=== PATIENT | female | born 1970 | race Hispanic/Latino ===

== ENCOUNTER 2018-05-19 06:30 | Inpatient (IN) | payer BC ==
--- NOTE | 2018-05-19 07:34 | ED PDOC ---
Arrival/HPI - General Chief Complaint: Fever Time Seen by Provider: 05/19/18 07:10 Historian: Patient - History of Present Illness Narrative History of Present Illness (Text): 05/19/18 07:42 A 47 year old female, whose past medical history includes hypertension, born with one kidney, and tonsillectomy, presents to the emergency department complaining of fever and cervical swollen lymph nodes since 4 days ago. Patient reports she went to see her PMD 4 days ago and was prescribed Leviquin. During the weekend, patient's fever would fluctuate up and down, and developed palpitations, sore throat, cough, dehydration, nausea (due to not being able to eat), fatigue and body aches. Patient returned to PMD yesterday and had blood work performed, was given a shot of "a medicine that begins with L", and was prescribed Augmentin. Patient states PMD instructed her to go to the ER if symptoms progress and if fever continues to remain. Patient denies any headaches, neck pain/stiffness, sick contacts, vomiting, abdominal pain, joint pain, rashes or any other complaints at this time. Also, patient mentions having diarrhea, however notes it is a side effect of the Augmentin taken. PMD: Dr. Sousa Past Medical History - Provider Review Nursing Documentation Reviewed: Yes - Infectious Disease Hx of Infectious Diseases: None - Tetanus Immunization Tetanus Immunization: Unknown - Reproductive Currently : No - Pulmonary Hx Asthma: Yes - Psychiatric Hx Depression: No Hx Emotional Abuse: No Hx Physical Abuse: No Hx Substance Use: No - Past Surgical History Past Surgical History: Non-Contributing - Suicidal Assessment Feels Threatened In Home Enviroment: No Family/Social History - Physician Review Nursing Documentation Reviewed: Yes Family/Social History: No Known Family HX Smoking Status: Never Smoked Hx Alcohol Use: No Hx Substance Use: No Hx Substance Use Treatment: No Allergies/Home Meds Allergies/Adverse Reactions: Allergies No Known Allergies Allergy (Verified 10/18/13 16:21) Home Medications: Home Meds Medication Instructions Recorded Confirmed Fexofenadine HCl/Pse HCl 1 ter PO DAILY 10/18/13 10/18/13 [Yana-D 12 Hour 60 mg-120 mg] Meclizine Hydrochloride [Antivert] 25 mg PO Q8 10/18/13 10/18/13 Neomycin/Polymyxin B Sulf/Hc 2 drop OT TID 10/18/13 10/18/13 [Cortisporin 1%-0.35%-90012 U/ml 10 ml] Telmisartan/Hydrochlorothiazid 1 tab PO DAILY 10/18/13 10/18/13 [Micardis Hct 25 mg-80 mg] Tramadol Hydrochloride [Tramadol] 50 mg PO Q8 PRN 10/18/13 10/18/13 clonazePAM [clonAZEPAM] 0.5 mg PO PRN PRN 10/18/13 05/19/18 Review of Systems - Physician Review All systems were reviewed & negative as marked: Yes - Review of Systems Constitutional: Fatigue, Fevers ENT: Sore Throat, Other (swollen lymph nodes in throat) Respiratory: Cough Cardiovascular: Palpitations Gastrointestinal: Nausea. absent: Abdominal Pain, Vomiting Musculoskeletal: Myalgias Physical Exam - Physical Exam Narrative Physical Exam (Text): Gen: NAD, cooperative, speaking in full sentences, non-toxic. Head: NCAT. HEENT: cervical lymphadenopathy, no strider. EYES: PERRL, EOMI, conjunctiva clear, NECK: supple, FROM, non tender, +b/l anterior lymphadenopathy L>R, no stridor MOUTH: moist MM, posterior pharynx with erythema, no exudate, uvula midline, overall poor dental hygiene, no mass in floor of the mouth, no abscesses appreciated, (+) scattered small ulceration to mucosa CV: (+) S1S2, tachycardia, no M/G/R LUNGS: CTA B/L, No W/R/, scattered rhonchi bilaterally, good air movement Abd: Soft, NTTP, no guarding, rebound or rigidity. Neuro: AAO x 3, GCS 15, CN 2-12 intact, motor and sensory grossly intact, 5/5 muscle strength B/L UE's and LE's. ext: no cyanosis or edema Vital Signs Reviewed: Yes Vital Signs Temp Pulse Resp BP Pulse Ox 05/19/18 06:47 101.8 F H 137 H 18 147/93 H 93 L Temperature: Febrile Blood Pressure: Normal Pulse: Regular Respiratory Rate: Normal Appearance: Positive for: Well-Appearing, Non-Toxic, Comfortable Pain Distress: None Mental Status: Positive for: Alert and Oriented X 3 Medical Decision Making ED Course and Treatment: 05/19/18 07:45 Impression: 47 year old female with fever, swollen lymph nodes to throat, sore throat, cough, dehydration, nausea (due to not being able to eat), fatigue, and body aches. Plan: -- Chest X-ray -- Labs -- IV Fluids -- Blood Culture -- Rapid Strep Test -- Influenza A/B -- Urinalysis -- Tylenol -- Reassess and disposition Progress Notes: 05/19/18 09:[address] Sousa, who agrees to admit patient for lymphadenopathy, and consult with Dr. Lizama. Patient was able to tolerate breakfast. 05/19/2018 09:58 Chest X-ray IMPRESSION: No active disease. Dictator: Kevan Hua MD - Scribe Statement The provider has reviewed the documentation as recorded by the Anthonyibzaira Salazar Provider Scribe Attestation: All medical record entries made by the Scribe were at my direction and personally dictated by me. I have reviewed the chart and agree that the record accurately reflects my personal performance of the history, physical exam, medical decision making, and the department course for this patient. I have also personally directed, reviewed, and agree with the discharge instructions and disposition. Disposition/Present on Arrival - Present on Arrival Any Indicators Present on Arrival: No History of DVT/PE: No History of Uncontrolled Diabetes: No Urinary Catheter: No History of Decub. Ulcer: No History Surgical Site Infection Following: None - Disposition Have Diagnosis and Disposition been Completed?: Yes Diagnosis: Cervical lymphadenopathy, Fever Disposition: HOSPITALIZED Disposition Time: 09:25 Patient Plan: Admission, Observation Patient Problems: Current Active Problems Problem Status Onset Cervical lymphadenopathy Acute Fever Acute Condition: STABLE
[2018-05-19] MEDS ORDERED: Sodium Chloride 0.9% 1,000 ML IV STA (07:41)
[2018-05-19 08:17] LABS: BASO # 0.03 K/mm3 (0.0-2.0); BASO % 0.4 % (0.0-3.0); EOS % 0.4 % (1.5-5.0); HEMOGLOBIN 11.5 g/dL (12.0-16.0); LYMPH # 1.3 (1.2-3.4); MEAN CELL VOLUME 91.2 fl (80.0-105.0); MEAN CORPUSCULAR HEMOGLOBIN 28.9 pg (25.0-35.0); MEAN CORPUSCULAR HGB CONC 31.7 g/dl (31.0-37.0); MEAN PLATELET VOLUME 8.9 fl (7.0-11.0); MONO # 0.8 (0.1-0.6); MONO % 10.8 % (1.0-6.0); RBC 3.98 10^6/uL (3.5-6.1); RED CELL DISTRIBUTION WIDTH 13.8 % (11.5-14.5); WHITE BLOOD COUNT 7.8 10^3/uL (4.5-11.0)
[2018-05-19 08:27] LABS: ALBUMIN 3.3 g/dL (3.0-4.8); ALT/SGPT 21 U/L (7-56); AST/SGOT 27 U/L (14-36); BLOOD UREA NITROGEN 10 mg/dL (7-21); CALCIUM 8.1 mg/dL (8.4-10.5); GFR NON-AFRICAN AMERICAN > 60
--- NOTE | 2018-05-19 09:57 | RAD ---
Date of service: 05/19/2018 HISTORY: fever COMPARISON: No prior. TECHNIQUE: Chest PA and lateral FINDINGS: LUNGS: No active pulmonary disease. PLEURA: No significant pleural effusion identified. No pneumothorax apparent. CARDIOVASCULAR: No aortic atherosclerotic calcification present. Normal cardiac size. No pulmonary vascular congestion. OSSEOUS STRUCTURES: No significant abnormalities. VISUALIZED UPPER ABDOMEN: Normal. OTHER FINDINGS: None. IMPRESSION: No active disease.
[2018-05-19] MEDS ORDERED: cefTRIAXone 1 gm 1 GM/100 ML BAG IVPB SCH (10:00)
--- NOTE | 2018-05-19 10:13 | CARD ---
APPROVED REPORT Date of service: 05/19/2018 EKG Measurement Heart [id number] <Conclusion> Sinus tachycardia Cannot rule out Anterior infarct, age undetermined Abnormal ECG
[2018-05-19] MEDS ORDERED: Potassium Chloride 20 mEq ER Tab PO STA (10:31)
[2018-05-19] MEDS: Piperacillin/Tazobact 3.375 gm 100 ML IVPB SCH ×2 (11:18→21:23)
[2018-05-19] MEDS: Azithromycin 500MG/NS 250ml 500 MG/250 ML BAG IVPB SCH (11:19)
[2018-05-19] MEDS ORDERED: Dextrose 5%/0.45% NS 1,000 ML IV SCH (12:15)
--- NOTE | 2018-05-19 16:39 | CP.PCM.CON ---
History of Present Illness - History of Present Illness History of Present Illness: 47 year old female with PMH of HTN, solitary kidney, S/P tonsillectomy, obesity with BMI 30 came in to [facility] because of 4 day history of pain on swallowing in her throat, fevers and malaise. She saw her PMD and was given Levaquin but she continued to have the pain and the fevers. She has on rare occasion dry cough, denies rhinorrhea, no headache or dizziness, no nausea or vomiting, no abdominal pain, no diarrhea, no dysuria, no chest pain, no myalgias. Prior to this admission, she was switched to Augmentin, and she took one dose and she had one loose bowel movement. In the ED, she was still noted to be febrile and Infectious Diseases consult is requested to further evaluate and manage. Review of Systems - Review of Systems All systems: reviewed and no additional remarkable complaints except (as per HPI) Past Patient History - Infectious Disease Hx of Infectious Diseases: None - Tetanus Immunizations Tetanus Immunization: Unknown - Past Social History Smoking Status: Never Smoked - PULMONARY Hx Asthma: Yes - PSYCHIATRIC Hx Depression: No Hx Emotional Abuse: No Hx Physical Abuse: No Hx Substance Use: No Meds Allergies/Adverse Reactions: Allergies Allergy/AdvReac Type Severity Reaction Status Date / Time No Known Allergies Allergy Verified 05/19/18 13:26 - Medications Medications: Current Medications Acetaminophen (Tylenol 325mg Tab) 650 mg PO Q6H PRN PRN Reason: Fever >100.4 F Clonazepam (Klonopin) 0.5 mg PO TID ALISTAIR; Protocol Azithromycin (Zithromax 500mg In Ns) 500 mg in 250 mls @ 167 mls/hr IVPB DAILY ALISTAIR; Protocol Piperacillin Sod/Tazobactam Sod (Zosyn 3.375 In Ns 100ml) 100 mls @ 25 mls/hr IVPB Q8 ALISTAIR; Protocol Stop: 05/26/18 11:16 Meclizine HCl (Antivert) 25 mg PO Q8 ALISTAIR Tramadol HCl (Ultram) 50 mg PO Q8 PRN PRN Reason: Pain Physical Exam - Constitutional Appears: Non-toxic, No Acute Distress - Head Exam Head Exam: NORMAL INSPECTION - ENT Exam ENT Exam: Mucous Membranes Moist - Neck Exam Neck exam: Positive for: Lymphadenopathy (cervical, submandibular noted). Negative for: Meningismus - Respiratory Exam Respiratory Exam: Decreased Breath Sounds. absent: Rales - Cardiovascular Exam Cardiovascular Exam: +S1, +S2 - GI/Abdominal Exam GI & Abdominal Exam: Soft. absent: Tenderness Results - Vital Signs Recent Vital Signs: Last Vital Signs Temp 100.5 F H 05/19/18 10:29 Pulse 95 H 05/19/18 10:29 Resp 20 05/19/18 10:29 BP 124/74 05/19/18 10:29 Pulse Ox 95 05/19/18 10:29 - Labs Result Diagrams: 05/19/18 07:55 05/19/18 07:55 Labs: Laboratory Results - last 24 hr 05/19/18 05/19/18 05/19/18 07:00 07:00 07:55 WBC 7.8 RBC 3.98 Hgb 11.5 L Hct 36.3 MCV 91.2 MCH 28.9 MCHC 31.7 RDW 13.8 Plt Count 187 MPV 8.9 Neut % (Auto) 71.4 H Lymph % (Auto) 17.0 L [place] % (Auto) 10.8 H Eos % (Auto) 0.4 L Baso % (Auto) 0.4 Lymph # (Auto) 1.3 [place] # (Auto) 0.8 H Eos # (Auto) 0.0 Baso # (Auto) 0.03 Absolute Neuts (auto) 5.53 Sodium Potassium Chloride Carbon Dioxide Anion Gap BUN Creatinine Est GFR ( Amer) Est GFR (Non-Af Amer) Random Glucose Calcium Total Bilirubin AST ALT Alkaline Phosphatase Total Protein Albumin Globulin Albumin/Globulin Ratio Urine HCG, Qual Influenza Typ A,B (EIA) Negative for flu a/b Grp A Beta Strep Ag Negative 05/19/18 05/19/18 07:55 08:00 WBC RBC Hgb Hct MCV MCH MCHC RDW Plt Count MPV Neut % (Auto) Lymph % (Auto) [place] % (Auto) Eos % (Auto) Baso % (Auto) Lymph # (Auto) [place] # (Auto) Eos # (Auto) Baso # (Auto) Absolute Neuts (auto) Sodium 139 Potassium 3.4 L Chloride 104 Carbon Dioxide 27 Anion Gap 11 BUN 10 Creatinine 0.8 Est GFR ( Amer) > 60 Est GFR (Non-Af Amer) > 60 Random Glucose 154 H Calcium 8.1 L Total Bilirubin 0.3 AST 27 ALT 21 Alkaline Phosphatase 52 Total Protein 6.7 Albumin 3.3 Globulin 3.4 Albumin/Globulin Ratio 1.0 L Urine HCG, Qual Negative Influenza Typ A,B (EIA) Grp A Beta Strep Ag Assessment & Plan - Assessment and Plan (Free Text) Plan: Assessment consider phanryngitis, bacterial on top of viral, consider infectious mononucleosis HTN solitary kidney S/P tonsillectomy obesity with BMI 30 Plan started on Zosyn and PMD has started her on Zithromax and will follow up throat swab cultures, heterophile antibody tests, EBV IgM will get HIV test due to her age will monitor clinically discussed with Dr. Sousa at bedside
[2018-05-19 16:56] VITALS: BMI 29.9
[2018-05-19] MEDS ORDERED: Benzocaine 20% Cream(7 gm) MT PRN (18:51)
--- NOTE | 2018-05-19 20:58 | HP ---
DATE OF EXAM: 05/19/2018 HISTORY OF PRESENT ILLNESS: The patient is a 47-year-old known to me from office. The patient was seen last week. She was having cough, congestion, sore throat, extreme fatigue and fever at home, so she was started on Levaquin 500 daily and she was given some antihistamine along with antitussive. The patient states she kept on spiking fever despite of being on antibiotic and antipyretic, so she was seen in office yesterday again. She complained of generalized lymphadenopathy. She came in yesterday with generalized lymphadenopathy. She has 102 fever in office. I gave her 300 mg of Lincocin intramuscular and I gave her to continue Levaquin and started her on Augmentin. The patient states she felt little better for few hours, then she started to have spike fever, she has 102 at home, felt very weak, dizzy, difficulty swallowing, and was not eating and drinking. She vomited once yesterday because of extreme fatigue and lethargy and she came to emergency room for further evaluation. PAST MEDICAL HISTORY: Significant for: 1. Hypertension. 2. Eustachian tube dysfunction. 3. Chronic vertigo. 4. Hypothyroidism. 5. B12 deficiency. 6. Solitary kidney. PAST SURGICAL HISTORY: Significant for tonsillectomy. ALLERGIES: SHE IS NOT ALLERGIC TO ANY MEDICATIONS. MEDICATIONS AT HOME: She is on Klonopin 0.5 mg t.i.d. p.r.n. and tramadol p.r.n. She is on Micardis 80/25 daily. She is on meclizine p.r.n. She uses Yana or Zyrtec once in a while. SOCIAL HISTORY: Denies smoking or drinking. She is single. No children, has her own . REVIEW OF SYSTEMS: Complain of dysphagia and enlarged lymph node in her neck causing her dysphagia, complaining of feeling fatigue. PHYSICAL EXAMINATION: GENERAL: She is awake, alert, and able to communicate. VITAL SIGNS: She has temperature of 101.8 upon arrival. She was given Tylenol and now she has temperature of 100.5, pulse 95, respirations 20, and blood pressure 124/74. LUNGS: Bilateral fair airflow. EXTREMITIES: No rhonchi or crackle. HEART: S1 and S2 audible. ABDOMEN: Soft and nontender. No rebound. No guarding. NEUROLOGICAL: The patient is awake, alert, oriented, and communicative. LABORATORY DATA: WBC 7.8, hemoglobin 11.5, hematocrit 36.3, and platelets 185. Chemistry; sodium 139, potassium 3.4, chloride 104, CO2 of , BUN 10, creatinine of 0.8, and blood sugar of 154. test is negative. Flu test is negative. Strep test is negative. ASSESSMENT: 1. Failed out patient treatment. 2. Spiking fever. 3. Acute pharyngitis with dysphagia. 4. Lymphadenopathy. 5. Hypokalemia. 6. Palpitation. 7. History of hypertension. PLAN: We will start the patient on IV fluids, supplement her potassium. She has been started on Zithromax and will be given Unasyn as per ID recommendation. We will follow up her cultures. We will follow up the patient in a.m. Rosa M Sousa MD
[2018-05-19] MEDS ORDERED: Albuterol-Ipratrop 3 mg / 0.5 (3 ml) UD IH ONE (22:32)
[2018-05-20] MEDS: Piperacillin/Tazobact 3.375 gm 100 ML IVPB SCH ×3 (05:06→23:25)
[2018-05-20] MEDS: Azithromycin 500MG/NS 250ml 500 MG/250 ML BAG IVPB SCH (11:49)
[2018-05-20] MEDS ORDERED: TraMADol/Apap 37.5/325 mg Tab PO PRN (11:53)
--- NOTE | 2018-05-20 14:36 | CP.PCM.PN ---
Subjective - Date & Time of Evaluation Date of Evaluation: 05/20/18 Time of Evaluation: 11:45 - Subjective Subjective: Patient is still having pain in the throat, and on swallowing, still with low grade fevers but a little better, no nausea, no diarrhea. No SOB. Objective - Vital Signs/Intake and Output Vital Signs (last 24 hours): Temp Pulse Resp BP Pulse Ox 100.5 F H 88 18 119/80 96 05/19/18 14:32 05/19/18 14:32 05/19/18 14:32 05/19/18 14:32 05/19/18 14:32 Intake and Output: 05/19/18 05/19/18 06:59 18:59 Intake Total 240 Balance 240 - Medications Medications: Current Medications Acetaminophen (Tylenol 325mg Tab) 650 mg PO Q6H PRN PRN Reason: Fever >100.4 F Last Admin: 05/19/18 13:01 Dose: 650 mg Clonazepam (Klonopin) 0.5 mg PO TID PRN; Protocol PRN Reason: Anxiety Azithromycin (Zithromax 500mg In Ns) 500 mg in 250 mls @ 167 mls/hr IVPB DAILY ALISTAIR; Protocol Last Admin: 05/19/18 11:19 Dose: 167 mls/hr Piperacillin Sod/Tazobactam Sod (Zosyn 3.375 In Ns 100ml) 100 mls @ 25 mls/hr IVPB Q8 ALISTAIR; Protocol Stop: 05/26/18 11:16 Last Admin: 05/19/18 11:18 Dose: 25 mls/hr Dextrose/Sodium Chloride (Dextrose 5%/0.45% Ns 1000 Ml) 1,000 mls @ 100 mls/hr IV .Q10H ALISTAIR Meclizine HCl (Antivert) 25 mg PO Q8 PRN PRN Reason: VERTIGO Tramadol HCl (Ultram) 50 mg PO Q8 PRN PRN Reason: Pain - Labs Labs: 05/19/18 07:55 05/19/18 07:55 - Constitutional Appears: Chronically Ill - Head Exam Head Exam: NORMAL INSPECTION - Respiratory Exam Respiratory Exam: Decreased Breath Sounds - Cardiovascular Exam Cardiovascular Exam: +S1, +S2 - GI/Abdominal Exam GI & Abdominal Exam: Soft. absent: Tenderness Assessment and Plan - Assessment and Plan (Free Text) Plan: Assessment consider phanryngitis, bacterial on top of viral, consider infectious mononucleosis, R/O HSV infection HTN solitary kidney S/P tonsillectomy obesity with BMI 30 Plan continue Zosyn and PMD has continued her on Zithromax; throat swab cultures are negative, heterophile antibody test is negative; follow up EBV IgM; will start IV Acyclovir and monitor clinical response HIV test is non-reactive will continue to monitor clinically discussed with Dr. Sousa
[2018-05-20] MEDS: MethylPREDNISolone 40 mg Vial IV SCH ×2 (14:58→23:55)
[2018-05-20] MEDS: Albuterol-Ipratrop 3 mg / 0.5 (3 ml) UD IH PRN ×2 (15:06→20:12)
--- NOTE | 2018-05-20 16:46 | PN ---
DATE: 05/20/2018 SUBJECTIVE: The patient is 47 years old, seen and examined. She complained of lymphadenopathy, has difficulty swallowing because of that, complained of painful mouth ulceration, spiked fever. PHYSICAL EXAMINATION: VITAL SIGNS: She had temperature of 100 this morning, pulse 115, respirations 18, and blood pressure 124/87. LUNGS: Bilateral fair airflow, no rhonchi or crackles. HEART: S1 and S2 audible. ABDOMEN: Soft, obese, nontender. No rebound, no guarding. NEUROLOGIC: The patient is awake and alert, able to communicate. LABORATORY DATA: Her mono screen is negative. Flu test is negative. HIV is negative. Strep culture is negative. Urinalysis is unremarkable. Blood cultures are negative. ASSESSMENT AND PLAN: 1. Probably viral syndrome. 2. Generalized lymphadenopathy. 3. Mouth ulceration. 4. History of asthma. 5. Anxiety disorder. 6. Hypertension. So, plan is, we will continue the patient on Claritin, continue IV fluids, start nebulizer treatment. Potassium is supplemented. We will give her clonidine 0.5 t.i.d. p.r.n., start her on Ultracet as needed. Discussed with ID. We will start her on small dose of steroid and awaiting ENT input. Rosa M Sousa MD
--- NOTE | 2018-05-20 17:22 | CP.PCM.CON ---
History of Present Illness - History of Present Illness History of Present Illness: 47 y/o female [place] [facility] [place] lymphadenopathy/odynophagia and hyperpyrexia. Pt has past medical hx significant for hypertension, eustachian tube disorder, vertigo and solitary congenital kidney. Pt was seen as an out patient for odynophagia and hyperpyrexia. She was started as an out patient with levaquin. Pt continued to run fever (102) documented and to have continued odynophagia. Pt seen and examined with agreement. Pt feels pressure left cheek and ear. Pt states she has odynophagia and dysphagia that has marginally improved since admission yesterday and starting zithormax IV with zosyn. Pt states neck is tender to palpation and movement. Pt refused Flexible fiberoptic examination of larynx on today's visit. PMhx as above PSHx tonsillectomy All contrast dye Fam Hx non contributory Review of Systems - Constitutional Constitutional: As Per HPI - EENT Eyes: As Per HPI Ears: As Per HPI Nose/Mouth/Throat: As Per HPI - Breasts Breasts: As Per HPI - Cardiovascular Cardiovascular: As Per HPI - Respiratory Respiratory: As Per HPI - Gastrointestinal Gastrointestinal: As Per HPI - Genitourinary Genitourinary: As Per HPI - Reproductive: Female Reproductive:Female: As Per HPI - Menstruation Menstruation: As Per HPI - Musculoskeletal Musculoskeletal: As Per HPI - Integumentary Integumentary: As Per HPI - Neurological Neurological: As Per HPI - Psychiatric Psychiatric: As Per HPI - Endocrine Endocrine: As Per HPI - Hematologic/Lymphatic Hematologic: As Per HPI Past Patient History - Infectious Disease Hx of Infectious Diseases: None - Tetanus Immunizations Tetanus Immunization: Unknown - Past Medical History & Family History Past Medical History?: Yes Past Family History: Reviewed and not pertinent - Past Social History Smoking Status: Never Smoked - CARDIAC Hx Cardiac Disorders: Yes Hx Hypertension: Yes - PULMONARY Hx Respiratory Disorders: Yes Hx Asthma: Yes - NEUROLOGICAL Hx Neurological Disorder: No - HEENT Hx HEENT Problems: Yes - RENAL Hx Chronic Kidney Disease: No - ENDOCRINE/METABOLIC Hx Endocrine Disorders: No - HEMATOLOGICAL/ONCOLOGICAL Hx Blood Disorders: No - INTEGUMENTARY Hx Dermatological Problems: No - MUSCULOSKELETAL/RHEUMATOLOGICAL Hx Musculoskeletal Disorders: No Hx Falls: No - GASTROINTESTINAL Hx Gastrointestinal Disorders: No - GENITOURINARY/GYNECOLOGICAL Hx Genitourinary Disorders: No - PSYCHIATRIC Hx Psychophysiologic Disorder: No Hx Depression: No Hx Emotional Abuse: No Hx Physical Abuse: No Hx Substance Use: No - SURGICAL HISTORY Hx Surgeries: Yes (JAW SX- CYST REMOVED,TONSILLECTOMY) Meds Allergies/Adverse Reactions: Allergies Allergy/AdvReac Type Severity Reaction Status Date / Time No Known Allergies Allergy Verified 05/19/18 13:26 - Medications Medications: Current Medications Acetaminophen (Tylenol 325mg Tab) 650 mg PO Q6H PRN PRN Reason: Fever >100.4 F Last Admin: 05/20/18 15:05 Dose: 650 mg Albuterol/Ipratropium (Duoneb 3 Mg/0.5 Mg (3 Ml) Ud) 3 ml IH [id number] PRN PRN Reason: Cough and congestion Last Admin: 05/20/18 15:06 Dose: 3 ml Atenolol (Tenormin) 50 mg PO DAILY ALISTAIR Atenolol (Tenormin) 25 mg PO HS ALISTAIR Benzocaine (Orajel Pm Maximum Strength) 1 gm MT QID PRN PRN Reason: Other Clonazepam (Klonopin) 0.5 mg PO TID PRN; Protocol PRN Reason: Anxiety Last Admin: 05/20/18 11:49 Dose: 0.5 mg Home Med (Home Med) 1 unit PO DAILY ALISTAIR Azithromycin (Zithromax 500mg In Ns) 500 mg in 250 mls @ 167 mls/hr IVPB DAILY ALISTAIR; Protocol Last Admin: 05/20/18 11:49 Dose: 167 mls/hr Piperacillin Sod/Tazobactam Sod (Zosyn 3.375 In Ns 100ml) 100 mls @ 25 mls/hr IVPB Q8 ALISTAIR; Protocol Stop: 05/26/18 11:16 Last Admin: 05/20/18 05:06 Dose: 25 mls/hr Dextrose/Sodium Chloride (Dextrose 5%/0.45% Ns 1000 Ml) 1,000 mls @ 100 mls/hr IV .Q10H ALISTAIR Last Admin: 05/19/18 21:23 Dose: 100 mls/hr Acyclovir 700 mg/ Sodium (Chloride) 100 mls @ 100 mls/hr IV Q8 ALISTAIR; Protocol Last Admin: 05/20/18 16:45 Dose: 100 mls/hr Meclizine HCl (Antivert) 25 mg PO Q8 PRN PRN Reason: VERTIGO Methylprednisolone (Solu-Medrol) 40 mg IV Q12 ALISTAIR Last Admin: 05/20/18 14:58 Dose: 40 mg Tramadol/Acetaminophen (Ultracet 37.5/325 Mg) 1 tab PO Q6H PRN PRN Reason: Pain, moderate (4-7) Physical Exam - Constitutional Appears: Well, Non-toxic - Head Exam Head Exam: NORMAL INSPECTION - Eye Exam Eye Exam: EOMI, Normal appearance, PERRL Pupil Exam: NORMAL ACCOMODATION - ENT Exam ENT Exam: Mucous Membranes Moist, Normal External Ear Exam, TM's Normal Bilaterally Additional comments: Ears: WNL Nose: mild rhinitis Throat: no erythema/exudate/ positive white plaque on tongue Neck: diffuse adenopathy bilaterally ITZEL,, no fluctuance - Neck Exam Neck exam: Positive for: Lymphadenopathy - Respiratory Exam Respiratory Exam: NORMAL BREATHING PATTERN Results - Vital Signs Recent Vital Signs: Last Vital Signs Temp 100.1 F H 05/20/18 15:48 Pulse 132 H 05/20/18 16:18 Resp 18 05/20/18 14:00 BP 111/92 H 05/20/18 16:18 Pulse Ox 92 L 05/20/18 14:00 - Labs Result Diagrams: 05/19/18 07:55 05/19/18 07:55 Labs: Laboratory Results - last 24 hr 05/19/18 05/19/18 07:55 11:30 Monoscreen Negative HIV 1&2 Ag/Ab, 4th Gen Nonreactive Assessment & Plan (1) Cervical lymphadenopathy Status: Acute (2) Fever Status: Acute (3) Vertigo Status: Acute (4) Oral thrush Status: Acute (5) Oral thrush Status: Acute (6) Odynophagia Status: Acute (7) Eustachian tube disorder Status: Acute - Assessment and Plan (Free Text) Plan: Continue IV antibiotics and await lab results pt refused fiberoptic laryngoscopy If no response to antibiotics consider CT Neck and biopsy after antibiotic trial - Date & Time Date: 05/20/18 Time: 17:20
[2018-05-20] MEDS: HCTZ PO SCH (18:38)
[2018-05-20] MEDS: TELMISARTAN PO SCH (18:38)
[2018-05-21] MEDS: Albuterol-Ipratrop 3 mg / 0.5 (3 ml) UD IH PRN (07:50)
[2018-05-21] MEDS: TELMISARTAN PO SCH (09:42)
[2018-05-21] MEDS: MethylPREDNISolone 40 mg Vial IV SCH (09:42)
[2018-05-21] MEDS: HCTZ PO SCH (09:42)
[2018-05-21] MEDS: Azithromycin 500MG/NS 250ml 500 MG/250 ML BAG IVPB SCH (09:42)
[2018-05-21] MEDS ORDERED: cefTRIAXone 1 gm 1 GM/100 ML BAG IVPB ONE (10:45)
[2018-05-21] MEDS: Piperacillin/Tazobact 3.375 gm 100 ML IVPB SCH ×2 (13:46→22:00)
--- NOTE | 2018-05-21 15:21 | CP.PCM.PN ---
Subjective - Date & Time of Evaluation Date of Evaluation: 05/21/18 Time of Evaluation: 13:00 - Subjective Subjective: No fevers this morning, not in distress, swallowing better, less pain in the throat, refused laryngoscopy from ENT yesterday. Objective - Vital Signs/Intake and Output Vital Signs (last 24 hours): Temp Pulse Resp BP Pulse Ox 99.3 F 108 H 18 120/80 94 L 05/21/18 06:00 05/21/18 09:43 05/21/18 06:00 05/21/18 09:43 05/21/18 06:00 Intake and Output: 05/21/18 05/21/18 06:59 18:59 Intake Total 960 720 Balance 960 720 - Medications Medications: Current Medications Acetaminophen (Tylenol 325mg Tab) 650 mg PO Q6H PRN PRN Reason: Fever >100.4 F Last Admin: 05/20/18 15:05 Dose: 650 mg Albuterol/Ipratropium (Duoneb 3 Mg/0.5 Mg (3 Ml) Ud) 3 ml IH [id number] PRN PRN Reason: Cough and congestion Last Admin: 05/21/18 07:50 Dose: 3 ml Atenolol (Tenormin) 50 mg PO DAILY [facility] Last Admin: 05/21/18 09:43 Dose: 50 mg Atenolol (Tenormin) 25 mg PO HS [facility] Last Admin: 05/20/18 23:15 Dose: 25 mg Azithromycin (Zithromax) 250 mg PO DAILY [facility]; Protocol Benzocaine (Orajel Pm Maximum Strength) 1 gm MT QID PRN PRN Reason: Other Clonazepam (Klonopin) 0.5 mg PO TID PRN; Protocol PRN Reason: Anxiety Last Admin: 05/21/18 09:05 Dose: 0.5 mg Home Med (Home Med) 1 unit PO DAILY [facility] Last Admin: 05/21/18 09:42 Dose: 1 unit Piperacillin Sod/Tazobactam Sod (Zosyn 3.375 In Ns 100ml) 100 mls @ 25 mls/hr IVPB Q8 [facility]; Protocol Stop: 05/26/18 11:16 Last Admin: 05/21/18 13:46 Dose: 25 mls/hr Meclizine HCl (Antivert) 25 mg PO Q8 PRN PRN Reason: VERTIGO Montelukast Sodium (Singulair) 10 mg PO DAILY [facility] Last Admin: 05/21/18 09:43 Dose: 10 mg Prednisone (Prednisone Tab) 10 mg PO BID [facility] Tramadol/Acetaminophen (Ultracet 37.5/325 Mg) 1 tab PO Q6H PRN PRN Reason: Pain, moderate (4-7) Valacyclovir HCl (Valtrex) 500 mg PO BID [facility]; Protocol - Labs Labs: 05/19/18 07:55 05/19/18 07:55 - Constitutional Appears: No Acute Distress, Chronically Ill - Head Exam Head Exam: NORMAL INSPECTION - ENT Exam Additional comments: ulcers noted on buccal [place] and inner lip - Neck Exam Neck Exam: Lymphadenopathy (cervical / submandibular) - Respiratory Exam Respiratory Exam: absent: Rales - Cardiovascular Exam Cardiovascular Exam: +S1, +S2 - GI/Abdominal Exam GI & Abdominal Exam: Soft. absent: Tenderness Assessment and Plan - Assessment and Plan (Free Text) Plan: Assessment consider phanryngitis, bacterial on top of viral, consider infectious mononucleosis, R/O HSV infection HTN solitary kidney S/P tonsillectomy obesity with BMI 30 Plan continue Zosyn day 3 and PMD has continued her on Zithromax; throat swab cultures are negative, heterophile antibody test is negative; follow up EBV IgM; switch IV Acyclovir to PO Valtrex and continue to monitor clinical response HIV test is non-reactive will continue to monitor clinically discussed with Dr. Sousa
--- NOTE | 2018-05-21 15:28 | PN ---
DATE: 05/21/2018 SUBJECTIVE: The patient is 47-year-old, seen and examined. She states she feels a lot better. Her dysphagia has improved. Her neck swelling has improved. Complain of palpitation when she gets steroid. PHYSICAL EXAMINATION: VITAL SIGNS: She has temperature 99.3, pulse 108, respiration 18 and blood pressure 120/80. LUNGS: Bilateral fair airflow. No rhonchi or crackle. HEART: S1 and S2, audible. ABDOMEN: Soft and nontender. No rebound. No guarding. NEUROLOGICAL: The patient is awake, alert, oriented, able to communicate and ambulatory. EXTREMITIES: Bilateral leg no edema. LABORATORY DATA: There is no new lab available today. However her Monospot test is negative. Flu test is negative. ASSESSMENT: 1. Probably viral syndrome. 2. Lymphadenopathy and mouth ulcer. 3. Odynophagia and dysphagia, secondary to large lymph nodes and ulcers. 4. Hypokalemia. 5. History of hypertension. 6. Palpitations. 7. History of asthma. PLAN: Since her oral intake has improved, I will discontinue IV fluid. Continue her on nebulizer treatment. Discontinue her IV steroids, will switch it to p.o. We will continue Zosyn, discontinue acyclovir and change it to Valtrex. If the patient continues to improve and is afebrile for the next 24 hours, we will make discharge plan for a.m. Rosa M Sousa MD
[2018-05-22] MEDS: Piperacillin/Tazobact 3.375 gm 100 ML IVPB SCH ×4 (06:34→22:36)
[2018-05-22] MEDS: TELMISARTAN PO SCH (10:00)
[2018-05-22] MEDS: HCTZ PO SCH (10:00)
--- NOTE | 2018-05-22 14:07 | CP.PCM.PN ---
Subjective - Date & Time of Evaluation Date of Evaluation: 05/22/18 Time of Evaluation: 12:15 - Subjective Subjective: Comfortable, no fevers, not in distress, swallowing better, feels less pain in the mouth. Objective - Vital Signs/Intake and Output Vital Signs (last 24 hours): Temp Pulse Resp BP Pulse Ox 99.3 F 108 H 18 120/80 94 L 05/21/18 06:00 05/21/18 09:43 05/21/18 06:00 05/21/18 09:43 05/21/18 06:00 Intake and Output: 05/21/18 05/21/18 06:59 18:59 Intake Total 960 720 Balance 960 720 - Medications Medications: Current Medications Acetaminophen (Tylenol 325mg Tab) 650 mg PO Q6H PRN PRN Reason: Fever >100.4 F Last Admin: 05/20/18 15:05 Dose: 650 mg Albuterol/Ipratropium (Duoneb 3 Mg/0.5 Mg (3 Ml) Ud) 3 ml IH [id number] PRN PRN Reason: Cough and congestion Last Admin: 05/21/18 07:50 Dose: 3 ml Atenolol (Tenormin) 50 mg PO DAILY [facility] Last Admin: 05/21/18 09:43 Dose: 50 mg Atenolol (Tenormin) 25 mg PO HS [facility] Last Admin: 05/20/18 23:15 Dose: 25 mg Azithromycin (Zithromax) 250 mg PO DAILY [facility]; Protocol Benzocaine (Orajel Pm Maximum Strength) 1 gm MT QID PRN PRN Reason: Other Clonazepam (Klonopin) 0.5 mg PO TID PRN; Protocol PRN Reason: Anxiety Last Admin: 05/21/18 09:05 Dose: 0.5 mg Home Med (Home Med) 1 unit PO DAILY [facility] Last Admin: 05/21/18 09:42 Dose: 1 unit Piperacillin Sod/Tazobactam Sod (Zosyn 3.375 In Ns 100ml) 100 mls @ 25 mls/hr IVPB Q8 [facility]; Protocol Stop: 05/26/18 11:16 Last Admin: 05/21/18 13:46 Dose: 25 mls/hr Meclizine HCl (Antivert) 25 mg PO Q8 PRN PRN Reason: VERTIGO Montelukast Sodium (Singulair) 10 mg PO DAILY [facility] Last Admin: 05/21/18 09:43 Dose: 10 mg Prednisone (Prednisone Tab) 10 mg PO BID [facility] Tramadol/Acetaminophen (Ultracet 37.5/325 Mg) 1 tab PO Q6H PRN PRN Reason: Pain, moderate (4-7) Valacyclovir HCl (Valtrex) 500 mg PO BID [facility]; Protocol - Labs Labs: 05/19/18 07:55 05/19/18 07:55 - Constitutional Appears: Non-toxic, No Acute Distress - Head Exam Head Exam: NORMAL INSPECTION - ENT Exam ENT Exam: Mucous Membranes Moist Additional comments: decreasing size of ulcer on the inner lip, buccal mucosa - Respiratory Exam Respiratory Exam: absent: Rales - Cardiovascular Exam Cardiovascular Exam: +S1, +S2 - GI/Abdominal Exam GI & Abdominal Exam: Soft. absent: Tenderness Assessment and Plan - Assessment and Plan (Free Text) Plan: Assessment consider phanryngitis, bacterial on top of viral, consider infectious mononucleosis, R/O HSV infection HTN solitary kidney S/P tonsillectomy obesity with BMI 30 Plan continue Zosyn day 4 and PMD has continued her on Zithromax; throat swab cultures are negative, heterophile antibody test is negative but as per Dr. Sousa she did one in her office and it was positive; EBV IgM is negative; switch IV Acyclovir to PO Valtrex and continue to monitor clinical response HIV test is non-reactive will continue to monitor clinically
--- NOTE | 2018-05-23 02:25 | PN ---
DATE: 05/22/2018 SUBJECTIVE: The patient is 47-year-old, seen and examined, seems to be doing a lot better, had lymphedema, but she has significant improvement. Her oral ulcers are still hurting a lot. We found improvement in her dysphagia. PHYSICAL EXAMINATION: VITAL SIGNS: She is afebrile, pulse 88, respirations 18, and blood pressure 114/69. LUNGS: Bilateral fair airflow. No rhonchi or crackle. HEART: S1 and S2, audible. ABDOMEN: Soft and nontender. No rebound. No guarding. NEUROLOGICAL: She is awake and alert, able to communicate. LABORATORY EXAMINATION: RPR is negative. Sandy-Roy virus is negative. HIV test is negative. Flu test is negative. Group beta strep hemolytic antigen is negative. ASSESSMENT: 1. Probably viral syndrome, failed outpatient treatment. 2. Generalized lymphadenopathy. 3. Mild renal insufficiency. 4. Hypertension. 5. Solitary kidney. PLAN: Currently, the patient is on nebulizer treatment. She is on Klonopin. She is on Mycelex Sayra. She is on prednisone 10 mg twice a day. She is on Singulair, atenolol, and tramadol as needed. She is on Valtrex, Zithromax, and Zosyn. We will monitor for next the 24 hours. If she is afebrile, she will be discharged home tomorrow. Rosa M Sousa MD
[2018-05-23] MEDS: Piperacillin/Tazobact 3.375 gm 100 ML IVPB SCH ×3 (05:56→21:58)
[2018-05-23] MEDS: HCTZ PO SCH (09:31)
[2018-05-23] MEDS: TELMISARTAN PO SCH (09:31)
[2018-05-23] MEDS: Albuterol-Ipratrop 3 mg / 0.5 (3 ml) UD IH PRN ×2 (10:23→20:28)
--- NOTE | 2018-05-23 14:47 | CP.PCM.PN ---
Subjective - Date & Time of Evaluation Date of Evaluation: 05/23/18 Time of Evaluation: 12:00 - Subjective Subjective: Comfortable, throat pain is improving, no fevers but still feels tired. Objective - Vital Signs/Intake and Output Vital Signs (last 24 hours): Temp Pulse Resp BP Pulse Ox 98.3 F 89 18 122/82 98 05/22/18 06:00 05/22/18 10:13 05/22/18 06:00 05/22/18 10:13 05/22/18 06:00 Intake and Output: 05/22/18 05/22/18 06:59 18:59 Intake Total 980 Balance 980 - Medications Medications: Current Medications Acetaminophen (Tylenol 325mg Tab) 650 mg PO Q6H PRN PRN Reason: Fever >100.4 F Last Admin: 05/20/18 15:05 Dose: 650 mg Albuterol/Ipratropium (Duoneb 3 Mg/0.5 Mg (3 Ml) Ud) 3 ml IH [id number] PRN PRN Reason: Cough and congestion Last Admin: 05/21/18 07:50 Dose: 3 ml Atenolol (Tenormin) 50 mg PO DAILY [facility] Last Admin: 05/22/18 10:13 Dose: 50 mg Atenolol (Tenormin) 25 mg PO HS [facility] Last Admin: 05/21/18 21:59 Dose: 25 mg Azithromycin (Zithromax) 250 mg PO DAILY [facility]; Protocol Last Admin: 05/22/18 10:13 Dose: 250 mg Benzocaine (Orajel Pm Maximum Strength) 1 gm MT QID PRN PRN Reason: Other Clonazepam (Klonopin) 0.5 mg PO TID PRN; Protocol PRN Reason: Anxiety Last Admin: 05/22/18 10:13 Dose: 0.5 mg Home Med (Home Med) 1 unit PO DAILY [facility] Last Admin: 05/22/18 10:00 Dose: 1 unit Piperacillin Sod/Tazobactam Sod (Zosyn 3.375 In Ns 100ml) 100 mls @ 25 mls/hr IVPB Q8 [facility]; Protocol Stop: 05/26/18 11:16 Last Admin: 05/22/18 13:52 Dose: 25 mls/hr Meclizine HCl (Antivert) 25 mg PO Q8 PRN PRN Reason: VERTIGO Last Admin: 05/22/18 13:52 Dose: 25 mg Montelukast Sodium (Singulair) 10 mg PO DAILY [facility] Last Admin: 05/22/18 10:13 Dose: 10 mg Prednisone (Prednisone Tab) 10 mg PO BID [facility] Last Admin: 05/22/18 10:14 Dose: 10 mg Tramadol/Acetaminophen (Ultracet 37.5/325 Mg) 1 tab PO Q6H PRN PRN Reason: Pain, moderate (4-7) Valacyclovir HCl (Valtrex) 500 mg PO BID [facility]; Protocol Last Admin: 05/22/18 10:36 Dose: 500 mg - Labs Labs: 05/19/18 07:55 05/19/18 07:55 - Constitutional Appears: Non-toxic, No Acute Distress - Head Exam Head Exam: NORMAL INSPECTION - ENT Exam ENT Exam: Mucous Membranes Moist Additional comments: decreasing sizes of mouth ulcers - Neck Exam Neck Exam: absent: Meningismus - Respiratory Exam Respiratory Exam: absent: Rales - Cardiovascular Exam Cardiovascular Exam: +S1, +S2 - GI/Abdominal Exam GI & Abdominal Exam: Soft. absent: Tenderness Assessment and Plan - Assessment and Plan (Free Text) Plan: Assessment consider phanryngitis, bacterial on top of viral, consider infectious mononucleosis, R/O HSV infection HTN solitary kidney S/P tonsillectomy obesity with BMI 30 Plan continue Zosyn day 5 and PMD has continued her on Zithromax; throat swab cultures are negative, heterophile antibody test is negative but as per Dr. Sousa she did one in her office and it was positive; EBV IgM is negative; switched IV Acyclovir to PO Valtrex and continue to monitor clinical response HIV test is non-reactive advised patient to avoid close, intimate contact for 2-4 weeks - patient u nderstands and acknowledges will continue to monitor clinically
--- NOTE | 2018-05-23 16:02 | PN ---
DATE: 05/23/2018 SUBJECTIVE: The patient is 47 years old, seen and examined. She states she feels a lot better, still has generalized weakness, lymph node swelling. Has significant lymph ____. PHYSICAL EXAMINATION: VITAL SIGNS: She has temperature 99.3, pulse 77, respirations 20, blood pressure 109/71. LUNGS: Bilateral fair airflow. No rhonchi or crackle. HEART: S1 and S2 audible. ABDOMEN: Soft, nontender. No rebound. No guarding. NEUROLOGIC: The patient is awake, alert, oriented. Communicative. LABORATORY DATA: No new labs available today. ASSESSMENT: 1. Viral syndrome. 2. Oral ulcer. 3. Dysphagia. 4. Generalized lymphadenopathy. 5. History of asthma. 6. Hypertension. PLAN: So plan is we will continue nebulizer treatment. She is on Klonopin, Mycelex Sayra. We will continue her on prednisone and Singulair. She is currently on atenolol. Her heart rate seems to be stable. She is on Valtrex. She is on Zithromax. We will continue her on Zosyn. Awaiting ID input. If the patient remain afebrile with next 24 hours, discharge plan in a.m. Rosa M Sousa MD
[2018-05-24 08:35] VITALS: RESP 18
[2018-05-24] MEDS: Albuterol-Ipratrop 3 mg / 0.5 (3 ml) UD IH PRN ×2 (09:05→16:17)
[2018-05-24] MEDS: TELMISARTAN PO SCH (09:37)
[2018-05-24] MEDS: HCTZ PO SCH (09:37)
--- NOTE | 2018-05-24 11:12 | CP.PCM.PN ---
Subjective - Date & Time of Evaluation Date of Evaluation: 05/24/18 Time of Evaluation: 10:15 - Subjective Subjective: Feels better but states she had an episode of chills last night but no recorded fevers, throat feels better, ulcers in her mouth are decreasing in size and not painful. Objective - Vital Signs/Intake and Output Vital Signs (last 24 hours): Temp Pulse Resp BP Pulse Ox 99.3 F 77 20 109/71 96 05/23/18 10:13 05/23/18 06:00 05/23/18 06:00 05/23/18 06:00 05/23/18 06:00 Intake and Output: 05/23/18 05/23/18 06:59 18:59 Intake Total 620 Balance 620 - Medications Medications: Current Medications Acetaminophen (Tylenol 325mg Tab) 650 mg PO Q6H PRN PRN Reason: Fever >100.4 F Last Admin: 05/20/18 15:05 Dose: 650 mg Albuterol/Ipratropium (Duoneb 3 Mg/0.5 Mg (3 Ml) Ud) 3 ml IH [id number] PRN PRN Reason: Cough and congestion Last Admin: 05/23/18 10:23 Dose: 3 ml Atenolol (Tenormin) 50 mg PO DAILY [facility] Last Admin: 05/23/18 09:31 Dose: 50 mg Atenolol (Tenormin) 25 mg PO HS [facility] Last Admin: 05/22/18 22:36 Dose: 25 mg Azithromycin (Zithromax) 250 mg PO DAILY [facility]; Protocol Last Admin: 05/23/18 09:31 Dose: 250 mg Benzocaine (Orajel Pm Maximum Strength) 1 gm MT QID PRN PRN Reason: Other Clonazepam (Klonopin) 0.5 mg PO TID PRN; Protocol PRN Reason: Anxiety Last Admin: 05/23/18 10:18 Dose: 0.5 mg Home Med (Home Med) 1 unit PO DAILY [facility] Last Admin: 05/23/18 09:31 Dose: 1 unit Piperacillin Sod/Tazobactam Sod (Zosyn 3.375 In Ns 100ml) 100 mls @ 25 mls/hr IVPB Q8 [facility]; Protocol Stop: 05/26/18 11:16 Last Admin: 05/23/18 13:20 Dose: 25 mls/hr Meclizine HCl (Antivert) 25 mg PO Q8 PRN PRN Reason: VERTIGO Last Admin: 05/23/18 13:20 Dose: 25 mg Montelukast Sodium (Singulair) 10 mg PO DAILY [facility] Last Admin: 05/23/18 09:31 Dose: 10 mg Prednisone (Prednisone Tab) 10 mg PO BID [facility] Last Admin: 05/23/18 09:31 Dose: 10 mg Tramadol/Acetaminophen (Ultracet 37.5/325 Mg) 1 tab PO Q6H PRN PRN Reason: Pain, moderate (4-7) Valacyclovir HCl (Valtrex) 500 mg PO BID [facility]; Protocol Last Admin: 05/23/18 09:31 Dose: 500 mg - Labs Labs: 05/19/18 07:55 05/19/18 07:55 - Constitutional Appears: No Acute Distress - Head Exam Head Exam: NORMAL INSPECTION - Respiratory Exam Respiratory Exam: absent: Rales - Cardiovascular Exam Cardiovascular Exam: +S1, +S2 - GI/Abdominal Exam GI & Abdominal Exam: Soft. absent: Tenderness Assessment and Plan - Assessment and Plan (Free Text) Plan: Assessment consider phanryngitis, bacterial on top of viral, consider infectious mononucleosis, R/O HSV infection HTN solitary kidney S/P tonsillectomy obesity with BMI 30 Plan on Zosyn day 6 and PMD has continued her on Zithromax; throat swab cultures are negative, heterophile antibody test is negative but as per Dr. Sousa she did one in her office and it was positive; EBV IgM is negative; switched IV Acyclovir to PO Valtrex HIV test is non-reactive advised patient to avoid close, intimate contact for 2-4 weeks - patient understands and acknowledges discussed with Dr. Sousa - if she is to be discharged, she can be on Augmentin, Valtrex for another 5 days with outpatient follow up with Dr. Sousa
[2018-05-24] MEDS: Piperacillin/Tazobact 3.375 gm 100 ML IVPB SCH (14:05)
[2018-05-24 15:09] VITALS: BP 137/87; PULSE 90; TEMP 99.6; O2SAT 93
--- NOTE | 2018-05-25 00:05 | DS ---
SUBJECTIVE: The patient is 47 years old, seen and examined. Still has low-grade fever, but ___ step better than before. No nausea, vomiting, or diarrhea. Eating and tolerating. PHYSICAL EXAMINATION: VITAL SIGNS: She has temperature 99.6, pulse 90, respirations 18, and blood pressure 137/87. LUNGS: Bilateral fair airflow. No rhonchi or crackles. HEART: S1 and S2 audible. ABDOMEN: Soft and nontender. No rebound. No guarding. NEUROLOGIC: The patient is awake, alert, oriented, able to communicate. ASSESSMENT: 1. Probably viral syndrome. On top of that, she has bacterial pharyngitis. 2. Solitary kidney. 3. Multiple oral ulcer causing dysphagia, was on intravenous fluids, started to tolerate food. 4. History of asthma. 5. Hypertension. PLAN: The patient is clinically stable. She has low-grade temp, but will be discharged home today. She has nebulizer machine at home. She will be discharged on Valtrex 500 mg twice a day. She is on Augmentin 500 mg three times a day and prednisone 10 mg twice a day. She will resume all of her medications including atenolol, tramadol as needed, Singulair 10 mg daily. She will take prednisone 10 mg twice a day. She is on Klonopin and meclizine. She will follow up in office next week. Rosa M Sousa MD
== END 2018-05-24 18:05 | disposition home or self-care (01) | DRG 866 ==
LOC: ED 06:30 → ERH 09:36 → 5RSO 10:37 → OBSVTOIN 05-21 15:56
PROVIDERS: ADMIT Internal Medicine; ATTEND Internal Medicine
DX: B34.9 Viral infection, unspecified (principal); B37.0 Candidal stomatitis; Q60.0 Renal agenesis, unilateral; E86.0 Dehydration; E87.6 Hypokalemia; R13.10 Dysphagia, unspecified; I10 Essential (primary) hypertension; E03.9 Hypothyroidism, unspecified; F41.9 Anxiety disorder, unspecified; J45.909 Unspecified asthma, uncomplicated; N28.9 Disorder of kidney and ureter, unspecified; H69.90 Unspecified Eustachian tube disorder, unspecified ear; R00.2 Palpitations; R59.0 Localized enlarged lymph nodes; E66.9 Obesity, unspecified; Z68.30 Body mass index [BMI] 30.0-30.9, adult

== ENCOUNTER 2018-08-08 18:07 | Inpatient (IN) | payer BC ==
[2018-08-08 18:07] VITALS: BMI 29.9
[2018-08-08] MEDS ORDERED: Sodium Chloride 0.9% 1,000 ML IV STA (19:14)
[2018-08-08 19:23] LABS: URINE APPEARANCE SLIGHT-CLOUDY (CLEAR); URINE BILIRUBIN NEGATIVE (NEGATIVE); URINE BLOOD LARGE (NEGATIVE); URINE COLOR YELLOW (YELLOW); URINE GLUCOSE (UA) NEGATIVE (NEGATIVE); URINE LEUKOCYTE ESTERASE TRACE Leu/uL (NEGATIVE); URINE PROTEIN 30 mg/dL (<30 mg/dL); URINE UROBILINOGEN 0.2 E.U./dL (<1 E.U./dL)
[2018-08-08 19:31] LABS: URINE BACTERIA TRACE /hpf; URINE RBC 15 - 20 /hpf (0-2); URINE WBC 0 - 2 /hpf (0-6)
[2018-08-08 19:50] LABS: BASO # 0.03 K/mm3 (0.0-2.0); BASO % 0.3 % (0.0-3.0); EOS # 0.2 (0.0-0.7); EOS % 2.7 % (1.5-5.0); HEMOGLOBIN 13.4 g/dL (12.0-16.0); LYMPH # 2.2 (1.2-3.4); LYMPH % 24.1 % (22.0-35.0); MEAN CELL VOLUME 88.9 fl (80.0-105.0); MEAN CORPUSCULAR HEMOGLOBIN 29.8 pg (25.0-35.0); MEAN CORPUSCULAR HGB CONC 33.5 g/dl (31.0-37.0); MEAN PLATELET VOLUME 9.5 fl (7.0-11.0); MONO # 0.7 (0.1-0.6); MONO % 7.7 % (1.0-6.0); RBC 4.5 10^6/uL (3.5-6.1); RED CELL DISTRIBUTION WIDTH 13.1 % (11.5-14.5); WHITE BLOOD COUNT 8.9 10^3/uL (4.5-11.0)
[2018-08-08 19:53] LABS: ALB/GLOB RATIO 1.1 (1.1-1.8); ALBUMIN 4.4 g/dL (3.0-4.8); ALT/SGPT 40 U/L (7-56); AST/SGOT 34 U/L (14-36); BLOOD UREA NITROGEN 12 mg/dL (7-21); CALCIUM 9.7 mg/dL (8.4-10.5); GFR NON-AFRICAN AMERICAN > 60
[2018-08-08 19:55] LABS: INR 1.35; PARTIAL THROMBOPLASTIN TIME 34.3 Seconds (26.9-38.3)
[2018-08-08 19:57] LABS: OPIATES, UR NEGATIVE (NEGATIVE)
[2018-08-08] MEDS ORDERED: Potassium Chloride 20 mEq/15 ml LIQ UD PO STA (19:59)
[2018-08-08 20:06] LABS: TROPONIN I < 0.01 ng/mL
--- NOTE | 2018-08-08 20:09 | ED PDOC ---
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 Patient states since last admission in May, she has been having dizziness and palpitation but today patient felt her symptoms were worse with associated nausea and vomiting. Patient states she took antivert without relief and describes dizziness as if shes on a boat. Patient states, in May, she was admitted for cervical adenopathy, bacterial infection, and mouth ulcers. Patient also states she was tested negative for mono and was tested positive for EBV. This past Friday, patient reports undergoing generalized anesthesia for 3 teeth removal to upper part of her mouth. In regard left ear eustation tube disfunction, treatment currently being managed by Dr. Mukherjee and in regards to palpitations, she has holter monitor treatment with Dr. Jara. In April of this year the patient was told she has intermittent skipped beats. Patient states she has never seen a neurologist regarding dizziness. Patient denies any chest pain, shortness of breath, fever, URI, or any other complaints. PMD: Dr. Sousa Time/Duration: 24 hours Symptom Onset: Gradual Symptom Course: Unchanged Activities at Onset: Light Context: Home <Denise Schroeder PA-C - Last Filed: 08/08/18 23:53> - General Chief Complaint: Palpitations Time Seen by Provider: 08/08/18 18:30 Past Medical History - Provider Review Nursing Documentation Reviewed: Yes - Infectious Disease Hx of Infectious Diseases: None - Tetanus Immunization Tetanus Immunization: Unknown - Cardiac Hx Cardiac Disorders: Yes Hx Hypertension: Yes - Pulmonary Hx Respiratory Disorders: Yes Hx Asthma: Yes - Neurological Hx Neurological Disorder: No - HEENT Hx HEENT Disorder: Yes - Renal Hx Renal Disorder: No Other/Comment: pt states was born with 1 kidney - Endocrine/Metabolic Hx Endocrine Disorders: No - Hematological/Oncological Hx Blood Disorders: No - Integumentary Hx Dermatological Disorder: No - Musculoskeletal/Rheumatological Hx Musculoskeletal Disorders: No Hx Falls: No - Gastrointestinal Hx Gastrointestinal Disorders: No - Genitourinary/Gynecological Hx Genitourinary Disorders: No - Psychiatric Hx Psychophysiologic Disorder: No Hx Depression: No Hx Emotional Abuse: No Hx Physical Abuse: No Hx Substance Use: No - Past Surgical History Past Surgical History: Non-Contributing - Anesthesia Hx Anesthesia: Yes Hx Anesthesia Reactions: No - Suicidal Assessment Feels Threatened In Home Enviroment: No <Denise Schroeder PA-C - Last Filed: 08/08/18 23:53> Family/Social History - Physician Review Nursing Documentation Reviewed: Yes Family/Social History: No Known Family HX Smoking Status: Never Smoked Hx Alcohol Use: No Hx Substance Use: No Hx Substance Use Treatment: No <Denise Schroeder PA-C - Last Filed: 08/08/18 23:53> Allergies/Home Meds <Elliot Marrufo - Last Filed: 08/08/18 23:43> <Denise Schroeder PA-C - Last Filed: 08/08/18 23:53> Allergies/Adverse Reactions: Allergies No Known Allergies Allergy (Verified 05/19/18 13:26) Home Medications: Home Meds Medication Instructions Recorded Confirmed Telmisartan/Hydrochlorothiazid 1 tab PO DAILY 10/18/13 05/19/18 [Micardis Hct 80-25 mg Tablet] clonazePAM [Klonopin] 0.5 mg PO PRN PRN 10/18/13 05/19/18 Acetaminophen [Pain Relief] 325 mg PO Q6 PRN 05/19/18 05/19/18 Fexofenadine HCl [Wal-Fex Allergy] 60 mg PO DAILY 05/19/18 05/19/18 Meclizine HCl [Dramamine Less 25 mg PO Q8 05/19/18 05/19/18 Drowsy] Tramadol HCl [Ultram] 50 mg PO Q8 PRN 05/19/18 05/19/18 Review of Systems - Physician Review All systems were reviewed & negative as marked: Yes - Review of Systems Constitutional: absent: Fevers Respiratory: absent: SOB, Other (upper respiratory infection) Cardiovascular: Palpitations. absent: Chest Pain Gastrointestinal: Nausea, Vomiting Neurological: Dizziness <Denise Schroeder PA-C - Last Filed: 08/08/18 23:53> Physical Exam Vital Signs Temp Pulse Resp BP Pulse Ox 08/08/18 20:03 98 H 18 139/79 98 08/08/18 19:25 105 H 18 98 08/08/18 18:29 99.7 F H 96 H 18 131/75 96 <Elliot Marrufo - Last Filed: 08/08/18 23:43> Vital Signs Reviewed: Yes Vital Signs Temp Pulse Resp BP Pulse Ox 08/08/18 20:03 98 H 18 139/79 98 08/08/18 19:25 105 H 18 98 08/08/18 18:29 99.7 F H 96 H 18 131/75 96 Temperature: Febrile Blood Pressure: Normal Pulse: Tachycardic Appearance: Positive for: Well-Appearing Mental Status: Positive for: Alert and Oriented X 3 - Systems Exam Head: Present: Atraumatic, Normocephalic Pupils: Present: PERRL Extroacular Muscles: Present: EOMI Conjunctiva: Present: Normal Mouth: Present: Dry Respiratory/Chest: Present: Clear to Auscultation, Good Air Exchange. No: Respiratory Distress, Accessory Muscle Use Cardiovascular: Present: Tachycardic Abdomen: No: Tenderness, Distention, Peritoneal Signs Upper Extremity: Present: Normal Inspection. No: Cyanosis, Edema Lower Extremity: Present: Normal Inspection. No: Edema Neurological: Present: GCS=15, CN II-XII Intact, Speech Normal Skin: Present: Warm, Dry, Normal Color. No: Rashes Psychiatric: Present: Alert, Oriented x 3, Normal Insight, Normal Concentration, Anxious <Denise Schroeder PA-C - Last Filed: 08/08/18 23:53> Medical Decision Making - Lab Interpretations Lab Results: PT 15.0 SECONDS (9.4-12.5) H 08/08/18 19:00 INR 1.35 08/08/18 19:00 APTT 34.3 Seconds (26.9-38.3) 08/08/18 19:00 Troponin I < 0.01 ng/mL 08/08/18 19:00 Total Bilirubin 0.4 mg/dL (0.2-1.3) 08/08/18 19:00 AST 34 U/L (14-36) 08/08/18 19:00 ALT 40 U/L (7-56) 08/08/18 19:00 Alkaline Phosphatase 64 U/L (38-126) 08/08/18 19:00 Total Protein 8.2 g/dL (5.8-8.3) 08/08/18 19:00 Albumin 4.4 g/dL (3.0-4.8) 08/08/18 19:00 Globulin 3.8 gm/dL 08/08/18 19:00 Albumin/Globulin Ratio 1.1 (1.1-1.8) 08/08/18 19:00 Urine Color Yellow (YELLOW) 08/08/18 19:00 Urine Appearance Slight-cloudy (CLEAR) 08/08/18 19:00 Urine pH 6.0 (4.7-8.0) 08/08/18 19:00 Ur Specific [place] >= 1.030 (1.005-1.035) 08/08/18 19:00 Urine Protein 30 mg/dL (<30 mg/dL) H 08/08/18 19:00 Urine Glucose (UA) Negative mg/dL (NEGATIVE) 08/08/18 19:00 Urine Ketones Negative mg/dL (NEGATIVE) 08/08/18 19:00 Urine Blood Large (NEGATIVE) H 08/08/18 19:00 Urine Nitrate Negative (NEGATIVE) 08/08/18 19:00 Urine Bilirubin Negative (NEGATIVE) 08/08/18 19:00 Urine Urobilinogen 0.2 E.U./dL (<1 E.U./dL) 08/08/18 19:00 Ur Leukocyte Esterase Trace [place]/uL (NEGATIVE) H 08/08/18 19:00 Urine RBC 15 - 20 /hpf (0-2) H 08/08/18 19:00 Urine WBC 0 - 2 /hpf (0-6) 08/08/18 19:00 Ur Epithelial Cells 1 - 3 /hpf (0-5) 08/08/18 19:00 Urine Bacteria Trace /hpf (NONE) 08/08/18 19:00 - RAD Interpretation Radiology Orders: 08/08/18 18:47 CHEST PORTABLE [RAD] Stat 08/08/18 19:14 HEAD W/O CONTRAST [CT] Stat - Medication Orders Current Medication Orders: Sodium Chloride (Sodium Chloride 0.9%) 1,000 mls @ 500 mls/hr IV .Q2H STA Stop: 08/08/18 21:13 Last Admin: 08/08/18 19:10 Dose: 500 mls/hr eMAR Start Stop Document 08/08/18 19:10 SS (Rec: 08/08/18 19:41 SS [id number]) Intravenous Solution Start Date 08/08/18 Start Time 19:10 End Date 08/08/18 End time 21:10 Total Infusion Time 120 Potassium Chloride (Potassium Chloride Oral Soln) 40 meq PO ONCE ONE Stop: 08/08/18 21:01 Last Admin: 08/08/18 20:31 Dose: Not Given Non-Admin Reason: duplicate Discontinued Medications Lorazepam (Ativan) 0.5 mg IVP ONCE ONE; Protocol Stop: 08/08/18 19:15 Last Admin: 08/08/18 19:40 Dose: 0.5 mg IVP Administration Document 08/08/18 19:40 SS (Rec: 08/08/18 19:40 SS [id number]) Charges for Administration # of IVP Administrations 1 Potassium Chloride (Potassium Chloride Oral Soln) 40 meq PO STAT STA Stop: 08/08/18 20:00 Last Admin: 08/08/18 20:30 Dose: 40 meq <Elliot Marrufo - Last Filed: 08/08/18 23:43> ED Course and Treatment: 08/08/18 18:55 Impression: 48 year old female presenting to the emergency room complaining of dizziness and palpitation. Plan: -- Head CT -- EKG -- TSH -- Drug Screen -- Chest X-ray -- Ativan -- Potassium Chloride -- IV fluids -- Urine culture -- Reassess and disposition Prior Visits: Notes and results from previous visits were reviewed. Patient was last seen on 05/19/18 for evaluation of fever and cervical swollen lymph nodes. Patient was admitted for further observation. Progress Notes: 08/08/18 21:40 EKG: ST at 114 bpm, (-) acute ST changes, as read by NATALYA. CXR : NAD, as read by NATALYA Labs reviewed, potassium noted to be 3.2, TSH is noted to be low at 0.16, troponin negative, rest of the labs are within normal limits. KCl PO x2 ordered. EXAM: CT Head Without IV contrast. IMPRESSION: No acute intracranial abnormality. Electronically signed on August 08, 2018 9:16:25 PM EDT by: Carlos Eduardo Rivera M.D., M.B.A., Certified By [employer] Trained MRI and CT Specialist On reevaluation, patient reports feeling better, still reports of feeling dizzy, denies any CP, SOB, headache. On exam, patient remains awake alert and oriented 3 in no acute distress. Results d/w the patient. Case d/w Dr. Sousa, agrees with plan to admit the patient. - Lab Interpretations Lab Results: PT 15.0 SECONDS (9.4-12.5) H 08/08/18 19:00 INR 1.35 08/08/18 19:00 APTT 34.3 Seconds (26.9-38.3) 08/08/18 19:00 Total Bilirubin 0.4 mg/dL (0.2-1.3) 08/08/18 19:00 AST 34 U/L (14-36) 08/08/18 19:00 ALT 40 U/L (7-56) 08/08/18 19:00 Alkaline Phosphatase 64 U/L (38-126) 08/08/18 19:00 Total Protein 8.2 g/dL (5.8-8.3) 08/08/18 19:00 Albumin 4.4 g/dL (3.0-4.8) 08/08/18 19:00 Globulin 3.8 gm/dL 08/08/18 19:00 Albumin/Globulin Ratio 1.1 (1.1-1.8) 08/08/18 19:00 Urine Color Yellow (YELLOW) 08/08/18 19:00 Urine Appearance Slight-cloudy (CLEAR) 08/08/18 19:00 Urine pH 6.0 (4.7-8.0) 08/08/18 19:00 Ur Specific [place] >= 1.030 (1.005-1.035) 08/08/18 19:00 Urine Protein 30 mg/dL (<30 mg/dL) H 08/08/18 19:00 Urine Glucose (UA) Negative mg/dL (NEGATIVE) 08/08/18 19:00 Urine Ketones Negative mg/dL (NEGATIVE) 08/08/18 19:00 Urine Blood Large (NEGATIVE) H 08/08/18 19:00 Urine Nitrate Negative (NEGATIVE) 08/08/18 19:00 Urine Bilirubin Negative (NEGATIVE) 08/08/18 19:00 Urine Urobilinogen 0.2 E.U./dL (<1 E.U./dL) 08/08/18 19:00 Ur Leukocyte Esterase Trace [place]li/uL (NEGATIVE) H 08/08/18 19:00 Urine RBC 15 - 20 /hpf (0-2) H 08/08/18 19:00 Urine WBC 0 - 2 /hpf (0-6) 08/08/18 19:00 Ur Epithelial Cells 1 - 3 /hpf (0-5) 08/08/18 19:00 Urine Bacteria Trace /hpf (NONE) 08/08/18 19:00 - RAD Interpretation Radiology Orders: 08/08/18 18:47 CHEST PORTABLE [RAD] Stat 08/08/18 19:14 HEAD W/O CONTRAST [CT] Stat - Medication Orders Current Medication Orders: Sodium Chloride (Sodium Chloride 0.9%) 1,000 mls @ 500 mls/hr IV .Q2H STA Stop: 08/08/18 21:13 Last Admin: 08/08/18 19:10 Dose: 500 mls/hr eMAR Start Stop Document 08/08/18 19:10 SS (Rec: 08/08/18 19:41 SS [id number]) Intravenous Solution Start Date 08/08/18 Start Time 19:10 End Date 08/08/18 End time 21:10 Total Infusion Time 120 Potassium Chloride (Potassium Chloride Oral Soln) 40 meq PO ONCE ONE Stop: 08/08/18 21:01 Discontinued Medications Lorazepam (Ativan) 0.5 mg IVP ONCE ONE; Protocol Stop: 08/08/18 19:15 Last Admin: 08/08/18 19:40 Dose: 0.5 mg IVP Administration Document 08/08/18 19:40 SS (Rec: 08/08/18 19:40 SS [id number]) Charges for Administration # of IVP Administrations 1 Potassium Chloride (Potassium Chloride Oral Soln) 40 meq PO STAT STA Stop: 08/08/18 20:00 <Denise Schroeder PA-C - Last Filed: 08/08/18 23:53> - PA / CRUMB PACKER / Resident Statement DEEP has reviewed & agrees with the documentation as recorded. DEEP has examined the patient and agrees with the treatment plan. <Elliot Marrufo - Last Filed: 08/08/18 23:43> - PA / CRUMB PACKER / Resident Statement MD/DO has reviewed & agrees with the documentation as recorded. - Scribe Statement The provider has reviewed the documentation as recorded by the Anthonyibzaira Moe All medical record entries made by the Scribe were at my direction and personally dictated by me. I have reviewed the chart and agree that the record accurately reflects my personal performance of the history, physical exam, medical decision making, and the department course for this patient. I have also personally directed, reviewed, and agree with the discharge instructions and disposition. <Denise Schroeder PA-C - Last Filed: 08/08/18 23:53> Disposition/Present on Arrival <Elliot Marrufo - Last Filed: 08/08/18 23:43> - Present on Arrival Any Indicators Present on Arrival: No History of DVT/PE: No History of Uncontrolled Diabetes: No Urinary Catheter: No History of Decub. Ulcer: No History Surgical Site Infection Following: None - Disposition Have Diagnosis and Disposition been Completed?: Yes Disposition Time: 23:00 Patient Plan: Admission <Denise Schroeder PA-C - Last Filed: 08/08/18 23:53> - Disposition Diagnosis: Palpitations, Vertigo, Eustachian tube disorder, Low TSH level, Near syncope Disposition: HOSPITALIZED Patient Problems: Current Active Problems Problem Status Onset Eustachian tube disorder Acute Low TSH level Acute Near syncope Acute Palpitations Acute Vertigo Acute Condition: STABLE
[2018-08-08 20:38] LABS: BARBITURATES, UR NEGATIVE (NEGATIVE); BENZODIAZEPINES, UR POSITIVE (NEGATIVE); PHENCYCLIDINE, UR NEGATIVE (NEGATIVE)
[2018-08-08] MEDS ORDERED: Potassium Chloride 40 mEq/30 ml LIQ UD PO ONE (21:00)
[2018-08-08] MEDS: Sodium Chloride 0.9% 1,000 ML IV SCH (23:51)
[2018-08-08] MEDS ORDERED: Magnesium Sulfate 1 gm in D5W 1 GM/100 ML BAG IV ONE (23:54)
[2018-08-09 08:09] LABS: ALB/GLOB RATIO 1.1 (1.1-1.8); ALBUMIN 3.6 g/dL (3.0-4.8); ALT/SGPT 30 U/L (7-56); AST/SGOT 29 U/L (14-36); BLOOD UREA NITROGEN 11 mg/dL (7-21); CALCIUM 8.7 mg/dL (8.4-10.5); GFR NON-AFRICAN AMERICAN > 60
[2018-08-09 08:21] LABS: FREE T4 1.4 ng/dL (0.78-2.19)
--- NOTE | 2018-08-09 09:38 | CT ---
Date of service: 08/08/2018 PROCEDURE: CT HEAD WITHOUT CONTRAST. HISTORY: dizziness COMPARISON: None available. TECHNIQUE: Axial computed tomography images were obtained through the head/brain without intravenous contrast. Supplemental Coronal and Sagittal projections created and reviewed. Radiation dose: Total exam DLP = 937.52 mGy-cm. This CT exam was performed using one or more of the following dose reduction techniques: Automated exposure control, adjustment of the mA and/or kV according to patient size, and/or use of iterative reconstruction technique. FINDINGS: HEMORRHAGE: No intracranial hemorrhage. BRAIN: No mass effect or edema. No atrophy or chronic microvascular ischemic changes. VENTRICLES: Unremarkable. No hydrocephalus. CALVARIUM: Unremarkable. PARANASAL SINUSES: Unremarkable as visualized. No significant inflammatory changes. MASTOID AIR CELLS: Unremarkable as visualized. No inflammatory changes. OTHER FINDINGS: None. IMPRESSION: No acute intracranial abnormalities. No significant findings to account for the clinical presentation. Concordant results (preliminary interpretation) provided by [facility]. Procedure Completed: 20:37. Preliminary Report: Interpreted and electronically signed: 21:15. Final Interpretation: 09:35. August 09, 2018.
[2018-08-09] MEDS: Sodium Chloride 0.9% 1,000 ML IV SCH ×2 (09:56→20:07)
--- NOTE | 2018-08-09 10:31 | CP.PCM.CON ---
History of Present Illness - History of Present Illness History of Present Illness: Awake,alert, no distress Reason for consultation: Cardiac evaluation of palpitations Brief history of present illness: A 48 year old obese female who came in to the ER due to dizziness and palpitations associated with nausea and vomiting x 1 day. History of hypertension, intermittent palpitations, asthma, born with one kidney,lympadenopathy, bacterial pharyngitis. Eustachian tube dysfunction in left ear causing dizziness and regularly follows up with ENT (Dr. Mukherjee). She was tested positive for EBV. She had holter monitor (Dr. Jara) for palpitations in April and showed intermittent skipped beats. Had teeth extraction few days ago. Patient takes antivert for dizziness. She has not seen neurologist for dizziness. Consult was called for palpitations. Seen and examined by me and Dr. Jara Review of Systems - Review of Systems All systems: reviewed and no additional remarkable complaints except Review of Systems: as per HPI Past Patient History - Infectious Disease Hx of Infectious Diseases: None - Tetanus Immunizations Tetanus Immunization: Unknown - Past Medical History & Family History Past Medical History?: Yes - Past Social History Smoking Status: Never Smoked - CARDIAC Hx Cardiac Disorders: Yes Hx Hypertension: Yes - PULMONARY Hx Respiratory Disorders: Yes Hx Asthma: Yes - NEUROLOGICAL Hx Neurological Disorder: No - HEENT Hx HEENT Problems: Yes Other/Comment: Left eustachian tube dysfunction - RENAL Hx Chronic Kidney Disease: No Other/Comment: pt states was born with 1 kidney - ENDOCRINE/METABOLIC Hx Endocrine Disorders: No - HEMATOLOGICAL/ONCOLOGICAL Hx Blood Disorders: No - INTEGUMENTARY Hx Dermatological Problems: No - MUSCULOSKELETAL/RHEUMATOLOGICAL Hx Falls: No - GASTROINTESTINAL Hx Gastrointestinal Disorders: No - GENITOURINARY/GYNECOLOGICAL Hx Genitourinary Disorders: No - PSYCHIATRIC Hx Psychophysiologic Disorder: No Hx Depression: No Hx Emotional Abuse: No Hx Physical Abuse: No - SURGICAL HISTORY Hx Surgeries: Yes (JAW SX- CYST REMOVED,TONSILLECTOMY) Other/Comment: 3 teeth extracted under anesthesia on 08/04/2018 - ANESTHESIA Hx Anesthesia: Yes Hx Anesthesia Reactions: No Meds Allergies/Adverse Reactions: Allergies Allergy/AdvReac Type Severity Reaction Status Date / Time No Known Allergies Allergy Verified 05/19/18 13:26 - Medications Medications: Current Medications Acetaminophen (Tylenol 325mg Tab) 325 mg PO Q6H PRN PRN Reason: Pain, Mild (1-3) Atenolol (Tenormin) 25 mg PO BID [facility] Last Admin: 08/09/18 09:57 Dose: 25 mg Diazepam (Valium) 5 mg PO Q6H PRN; Protocol PRN Reason: Anxiety Sodium Chloride (Sodium Chloride 0.9%) 1,000 mls @ 100 mls/hr IV .Q10H [facility] Last Admin: 08/09/18 09:56 Dose: 100 mls/hr Meclizine HCl (Antivert) 25 mg PO Q8 [facility] Last Admin: 08/09/18 05:11 Dose: 25 mg Montelukast Sodium (Singulair) 10 mg PO HS [facility] Ondansetron HCl (Zofran Inj) 4 mg IVP Q6H PRN PRN Reason: Nausea/Vomiting Pantoprazole Sodium (Protonix Inj) 40 mg IVP DAILY [facility] Last Admin: 08/09/18 09:57 Dose: 40 mg Tramadol HCl (Ultram) 50 mg PO Q8 PRN PRN Reason: Pain, severe (8-10) Last Admin: 08/09/18 09:56 Dose: 50 mg Physical Exam - Constitutional Appears: Non-toxic, No Acute Distress - Head Exam Head Exam: NORMAL INSPECTION, NORMOCEPHALIC - Eye Exam Eye Exam: Normal appearance Pupil Exam: NORMAL ACCOMODATION - ENT Exam ENT Exam: Mucous Membranes Moist, Normal Exam - Respiratory Exam Respiratory Exam: Clear to Auscultation Bilateral, NORMAL BREATHING PATTERN - Cardiovascular Exam Cardiovascular Exam: REGULAR RHYTHM, +S1, +S2 - GI/Abdominal Exam GI & Abdominal Exam: Normal Bowel Sounds, Soft - Neurological Exam Neurological exam: Alert, Oriented x3 - Psychiatric Exam Psychiatric exam: Normal Affect, Normal Mood - Skin Skin Exam: Dry, Normal Color, Warm Results - Vital Signs Recent Vital Signs: Last Vital Signs Temp 97.8 F 08/09/18 06:00 Pulse 72 08/09/18 09:57 Resp 20 08/09/18 06:00 BP 112/78 08/09/18 09:57 Pulse Ox 95 08/09/18 06:00 - Labs Result Diagrams: 08/08/18 19:00 08/09/18 07:00 Labs: Laboratory Results - last 24 hr 08/08/18 08/08/18 08/08/18 19:00 19:00 19:00 WBC 8.9 RBC 4.50 Hgb 13.4 Hct 40.0 MCV 88.9 MCH 29.8 MCHC 33.5 RDW 13.1 Plt Count 319 MPV 9.5 Neut % (Auto) 65.2 Lymph % (Auto) 24.1 [place] % (Auto) 7.7 H Eos % (Auto) 2.7 Baso % (Auto) 0.3 Lymph # (Auto) 2.2 [place] # (Auto) 0.7 H Eos # (Auto) 0.2 Baso # (Auto) 0.03 Absolute Neuts (auto) 5.80 PT 15.0 H INR 1.35 APTT 34.3 Sodium Potassium Chloride Carbon Dioxide Anion Gap BUN Creatinine Est GFR ( Amer) Est GFR (Non-Af Amer) Random Glucose Calcium Magnesium Total Bilirubin AST ALT Alkaline Phosphatase Lactate Dehydrogenase Total Creatine Kinase Troponin I Total Protein Albumin Globulin Albumin/Globulin Ratio Free T4 TSH 3rd Generation Urine Color Yellow Urine Appearance Slight-cloudy Urine pH 6.0 Ur Specific [place] >= 1.030 Urine Protein 30 H Urine Glucose (UA) Negative Urine Ketones Negative Urine Blood Large H Urine Nitrate Negative Urine Bilirubin Negative Urine Urobilinogen 0.2 Ur Leukocyte Esterase Trace H Urine RBC 15 - 20 H Urine WBC 0 - 2 Ur Epithelial Cells 1 - 3 Urine Bacteria Trace Urine Opiates Screen Urine Methadone Screen Ur Barbiturates Screen Ur Phencyclidine Scrn Ur Amphetamines Screen U Benzodiazepines Scrn U Oth Cocaine Metabols U Cannabinoids Screen 08/08/18 08/08/18 08/08/18 19:00 19:00 19:00 WBC RBC Hgb Hct MCV MCH MCHC RDW Plt Count MPV Neut % (Auto) Lymph % (Auto) [place] % (Auto) Eos % (Auto) Baso % (Auto) Lymph # (Auto) [place] # (Auto) Eos # (Auto) Baso # (Auto) Absolute Neuts (auto) PT INR APTT Sodium 138 Potassium 3.2 L Chloride 97 L Carbon Dioxide 31 Anion Gap 13 BUN 12 Creatinine 0.9 Est GFR ( Amer) > 60 Est GFR (Non-Af Amer) > 60 Random Glucose 106 Calcium 9.7 Magnesium 1.6 L Total Bilirubin 0.4 AST 34 ALT 40 Alkaline Phosphatase 64 Lactate Dehydrogenase 446 Total Creatine Kinase 28 L Troponin I < 0.01 Total Protein 8.2 Albumin 4.4 Globulin 3.8 Albumin/Globulin Ratio 1.1 Free T4 TSH 3rd Generation 0.16 L Urine Color Urine Appearance Urine pH Ur Specific [place] Urine Protein Urine Glucose (UA) Urine Ketones Urine Blood Urine Nitrate Urine Bilirubin Urine Urobilinogen Ur Leukocyte Esterase Urine RBC Urine WBC Ur Epithelial Cells Urine Bacteria Urine Opiates Screen Negative Urine Methadone Screen Negative Ur Barbiturates Screen Negative Ur Phencyclidine Scrn Negative Ur Amphetamines Screen Negative U Benzodiazepines Scrn Positive H U Oth Cocaine Metabols Negative U Cannabinoids Screen Negative 08/09/18 08/09/18 07:00 07:00 WBC RBC Hgb Hct MCV MCH MCHC RDW Plt Count MPV Neut % (Auto) Lymph % (Auto) [place] % (Auto) Eos % (Auto) Baso % (Auto) Lymph # (Auto) [place] # (Auto) Eos # (Auto) Baso # (Auto) Absolute Neuts (auto) PT INR APTT Sodium 141 Potassium 3.4 L Chloride 103 Carbon Dioxide 29 Anion Gap 12 BUN 11 Creatinine 0.8 Est GFR ( Amer) > 60 Est GFR (Non-Af Amer) > 60 Random Glucose 90 Calcium 8.7 Magnesium 1.9 Total Bilirubin 0.4 AST 29 ALT 30 Alkaline Phosphatase 51 Lactate Dehydrogenase Total Creatine Kinase Troponin I Total Protein 6.9 Albumin 3.6 Globulin 3.3 Albumin/Globulin Ratio 1.1 Free T4 1.40 TSH 3rd Generation 0.35 L Urine Color Urine Appearance Urine pH Ur Specific [place] Urine Protein Urine Glucose (UA) Urine Ketones Urine Blood Urine Nitrate Urine Bilirubin Urine Urobilinogen Ur Leukocyte Esterase Urine RBC Urine WBC Ur Epithelial Cells Urine Bacteria Urine Opiates Screen Urine Methadone Screen Ur Barbiturates Screen Ur Phencyclidine Scrn Ur Amphetamines Screen U Benzodiazepines Scrn U Oth Cocaine Metabols U Cannabinoids Screen Assessment & Plan - Assessment and Plan (Free Text) Assessment: A 48 year old obese female who came in to the ER due to dizziness and palpitations associated with nausea and vomiting x 1 day. History of hypertension, intermittent palpitations, asthma, born with one kidney, lympadenopathy, bacterial pharyngitis, Eustachian tube dysfunction in left ear causing dizziness and regularly follows up with ENT (Dr. Mukherjee). She was tested positive for EBV. She had holter monitor (Dr. Jara) for palpitations in April and showed intermittent skipped beats. Had teeth extraction few days ago. Patient takes antivert for dizziness. She has not seen neurologist for [place]. Consult was called for palpitations. EKG showed sinus tachycardia- 110/min. TSH level low. . Tachycardia, increase Tenormin dose BID. Echo to evaluate LV function. Clinically stable. Fall precaution. Plan: Denies chest pain, intermittent palpitations Heart rate controlled now, normal sinus rhythm- 90's Atenolol increased to 25 mg BID Blood pressure controlled On Atenolol 25 mg BID, Antivert 25 mg every 8 hours Continue current medications Continue current treatment Echo to evaluate LV function Replenish potassium Further recommendations during hospital course Will follow up Plan and treatment discussed with Dr. Jara Thank you Dr. Sousa for the opportunity of taking care of Tenisha Olivas - Date & Time Date: 08/09/18 Time: 06:30
--- NOTE | 2018-08-09 10:47 | CARD ---
APPROVED REPORT Date of service: 08/08/2018 EKG Measurement Heart [id number] <Conclusion> Sinus tachycardia Moderate voltage criteria for LVH, may be normal variant Borderline ECG
--- NOTE | 2018-08-09 11:48 | RAD ---
Date of service: 08/08/2018 HISTORY: palpitations COMPARISON: 05/19/2018. FINDINGS: LUNGS: No active pulmonary disease. PLEURA: No significant pleural effusion identified, no pneumothorax apparent. CARDIOVASCULAR: No atherosclerotic calcification present No radiographic findings to suggest acute or significant cardiovascular disease. OSSEOUS STRUCTURES: No significant abnormalities. VISUALIZED UPPER ABDOMEN: Normal. OTHER FINDINGS: None. IMPRESSION: No active disease. No significant interval change compared to the prior examination(s).
--- NOTE | 2018-08-09 21:18 | PN ---
DATE: 08/09/2018 SUBJECTIVE: The patient is a 48-year-old who came to emergency room because of feeling foggy, having extreme dizziness, palpitation, having feeling of heat on face, and complain of nausea. PHYSICAL EXAMINATION: VITAL SIGNS: She is afebrile, pulse of 81, respirations of 20, and blood pressure of 112/78. LUNGS: Bilateral fair airflow. No rhonchi or crackle. HEART: S1 and S2 audible. ABDOMEN: Soft and nontender. No rebound. No guarding. NEUROLOGIC: The patient is awake, alert, and able to communicate. LABORATORY DATA: Sodium of 141, potassium of 3.4, chloride of 103, CO2 of 29, BUN of 11, creatinine of 0.8, blood sugar of 90. Urine, blood and trace leukocytes. ASSESSMENT AND PLAN: Severe vertigo with nausea. Currently, she is on atenolol 25 mg twice a day. Continue her on IV fluids. Echocardiogram is ordered. The patient also complains of feeling extremely dizzy, lightheaded, difficulty walking, and fall. Get Dr. Mukherjee for evaluation and she also has pain and swelling of the right big toe. We will get Podiatry evaluation. Rosa M Sousa MD
--- NOTE | 2018-08-10 01:30 | CON ---
DATE: 08/09/2018 ENDOCRINOLOGY CONSULT The patient is seen in Room #269. HISTORY OF PRESENT ILLNESS: This is a 48-year-old female with known history of hypertension and dyslipidemia and intermittent palpitations and dizziness for the last 3 months or so prior to admission and is now being referred for an endocrine evaluation of abnormal thyroid function studies. She admits to having intermittent palpitations with associated dizziness and lightheadedness, worse in the last week or so prior to admission although she has had these symptoms for the last three months or so until the present time. Moreover, she has developed nausea, dyspepsia, and vomiting over the last week or so prior to admission. She takes Antivert p.r.n. for dizzy spells as given. PAST MEDICAL HISTORY: As mentioned above, history of hypertension and dyslipidemia, history of chronic bronchial asthma, on intermittent oral steroid usage, a history of a congenital absence of one kidney and has had normal renal function to the present time. History of eustachian tube dysfunction in the left ear with associated dizziness and lightheadedness, worse in the last week or so prior to admission. She is followed closely by Dr. Mukherjee, a local ENT specialist. FAMILY HISTORY: No known thyroid endocrinopathy, positive for hypertension and heart disease. SOCIAL HISTORY: The patient has a supportive family. No known substance use. REVIEW OF SYSTEMS: Admits to generalized body weakness with episodic bouts of dizziness and lightheadedness and bifrontal headaches, worse on the day of admission. She denies any visual changes, otherwise. No chest pains, but admits to intermittent palpitations, especially on exertion with occasional shortness of breath, also on exertion as noted. Admits to recent nausea, dyspepsia, and vomiting with vague upper abdominal pains. No recent alterations of her bowel or her urinary patterns. PHYSICAL EXAMINATION: GENERAL: This is an average-built female, in no apparent distress. VITAL SIGNS: Blood pressure of 140/80, pulse of 110 beats per minute, regular; temperature 98, respirations 20, height is 5 feet 5 inches, weight is 180 pounds. HEENT: Head normocephalic. Eyes anicteric with pink conjunctivae. Funduscopy not possible at this time. Ears, nose, and throat, otherwise, normal. NECK: Supple. Thyroid gland is normal size. No carotid bruits or cervical adenopathy. CARDIOPULMONARY: Some adynamic precordium. S1, S2 is rapid and regular. LUNGS: Clear to auscultation. ABDOMEN: Flat, soft, with positive bowel sounds. EXTREMITIES: No peripheral edema. Pulses are +2 bilaterally. LABORATORY DATA: Her chemistries reveal a BUN of 138, potassium 3.2, chloride 97, CO2 of 31, glucose 106, and creatinine 0.9. Her free T4 is 1.4 with a TSH of 0.16 and a subsequent level of 0.35. ASSESSMENT: This is a 48-year-old female with hyperadrenergic and constitutional manifestations, most likely related to subclinical hyperthyroidism presenting here with dizziness and palpitations, especially on exertion as noted. The possibility of overt thyrotoxicosis can only be excluded with the measurement of a total T4 or thyroxine level as noted. However, with the recent usage of oral steroid therapy, this will also contribute to transient TSH suppression thereof. PLAN OF MANAGEMENT: With the above-mentioned hyperadrenergic symptoms and progressively worsening palpitations and dizziness, we will empirically start her on Tapazole given as 5 mg b.i.d. to start tomorrow morning as ordered and we will titrate incrementally as indicated to optimize metabolic control. We will obtain a comprehensive thyroid hormonal profile to include a total T4 or thyroxine level which will guide us as to the degree of hyperthyroxinemia thereof. We will obtain a thyroid stimulating immunoglobulin and a thyroid peroxidase antibody to confirm and/or indicate the presence of underlying thyroid autoimmunity. We will obtain serial chemistries as she has also transient hypokalemia although she has been using also antihypertensives with diuretic therapy, but overt thyrotoxicosis could also contribute to hypoglycemia thereof. We will obtain serial chemistries and supplement accordingly as needed. We will also obtain a thyroid ultrasound to delineate her thyroid lobe dimensions and detect any underlying subclinical thyromegaly. We will follow along with you. Kerry Poe MD
[2018-08-10 05:35] VITALS: O2SAT 97
[2018-08-10] MEDS: Pantoprazole 40 mg EC Tab PO SCH (05:57)
[2018-08-10] MEDS: Sodium Chloride 0.9% 1,000 ML IV SCH (06:00)
[2018-08-10 07:21] LABS: BASO # 0.04 K/mm3 (0.0-2.0); BASO % 0.5 % (0.0-3.0); EOS # 0.4 (0.0-0.7); EOS % 4.9 % (1.5-5.0); LYMPH # 2.2 (1.2-3.4); LYMPH % 28.2 % (22.0-35.0); MEAN CELL VOLUME 90.3 fl (80.0-105.0); MEAN CORPUSCULAR HGB CONC 32.1 g/dl (31.0-37.0); MEAN PLATELET VOLUME 9.2 fl (7.0-11.0); MONO # 0.7 (0.1-0.6); MONO % 8.7 % (1.0-6.0); RBC 3.9 10^6/uL (3.5-6.1); RED CELL DISTRIBUTION WIDTH 13.4 % (11.5-14.5); WHITE BLOOD COUNT 7.8 10^3/uL (4.5-11.0)
[2018-08-10 07:22] LABS: HEMOGLOBIN 11.3 g/dL (12.0-16.0)
[2018-08-10 07:46] LABS: FREE T4 1.19 ng/dL (0.78-2.19)
[2018-08-10 07:49] LABS: ALB/GLOB RATIO 1.1 (1.1-1.8); ALBUMIN 3.4 g/dL (3.0-4.8); ALT/SGPT 29 U/L (7-56); AST/SGOT 24 U/L (14-36); BLOOD UREA NITROGEN 12 mg/dL (7-21); CALCIUM 8.2 mg/dL (8.4-10.5); GFR NON-AFRICAN AMERICAN > 60
--- NOTE | 2018-08-10 08:20 | HP ---
DATE OF EXAM: <> 08/08/2018 HISTORY OF PRESENT ILLNESS: The patient is 48-year-old. Got a call that she is not feeling well. She has 3 teeth removed on Friday. She was given erythromycin, but she states probably she had the side effect. She does not . She feels very . She has palpitations. She took her usual medications including Klonopin, Antivert, and had the antibiotic, but still felt that she has no appetite and she is very foggy. So she came to the emergency room for further evaluation. PAST MEDICAL HISTORY: She has significant past medical history of: 1. Hypertension. 2. History of solitary kidney. 3. Anxiety disorder. 4. History of gastritis. 5. B12 deficiency. ALLERGIES: SHE IS NOT ALLERGIC TO ANY MEDICATION. MEDICATIONS AT HOME: She is on Klonopin 0.5 mg twice a day, tramadol 50 mg 3 times a day, 12.5 daily, Singulair 10 mg daily, meclizine 25 mg every 8 hour, atenolol 25 mg daily, and Tylenol as needed. SOCIAL HISTORY: She denies smoking and drinking or alcohol use. She is single, lives with her mother. PHYSICAL EXAMINATION GENERAL: She states she feels horrible, does not feel well. VITAL SIGNS: Temperature 99.7, pulse 96, respiration 18, blood pressure 139/79. LUNGS: Bilateral fair air flow. No rhonchi or crackle. HEART: S1 and S2 audible, tachycardic. ABDOMEN: Soft, nontender. No rebound, no guarding. NEUROLOGIC: She is awake and alert, able to communicate. LABORATORY DATA: WBC 8.9, hemoglobin 13, hematocrit 40, platelet 319. PT 15.0, INR 1.35. Chemistries: Sodium 138, potassium 3.2, chloride 97, CO2 of 31, BUN 12, creatinine of 0.9, blood sugar of 106, magnesium 1.6, CPK 28, TSH 0.16. Urinalysis; blood, trace leukocytes. Urine tox positive for benzodiazepines because the patient is on Valium for chronic vertigo. ASSESSMENT AND PLAN: 1. Intractable nausea and dizziness. 2. Palpitations, rule out sepsis, rule out hypothyroidism. PLAN: The patient will be placed in observation. We will start her on IV fluids, atenolol. We will request for Cardiology evaluation. We will supplement on potassium, rule out electrolyte in the a.m. Rosa M Sousa MD
[2018-08-10] MEDS ORDERED: Lidocaine 2% Jelly (Uro-Jet) TOP ONE (09:44)
--- NOTE | 2018-08-10 09:50 | CP.PCM.CON ---
History of Present Illness - History of Present Illness History of Present Illness: Podiatry consult - Drs. Schwartz/Jose 48F seen and evaluated at bedside this AM with Dr. Garcia for left great toe pain. Resting comfortably. Reports pain in the great toe associated with the nail. States that she had gotten a pedicure a month ago where she felt as if she got cut but did not see any bleeding or drainage. States the pain in her toe started a week ago and has gotten worse upon wearing shoegear or when she feels her toe rubbing against her second digit. Denies n/v/f/c today and has no other acute pedal complaints. Past Patient History - Infectious Disease Hx of Infectious Diseases: None - Tetanus Immunizations Tetanus Immunization: Unknown - Past Medical History & Family History Past Medical History?: Yes - Past Social History Smoking Status: Never Smoked - CARDIAC Hx Cardiac Disorders: Yes Hx Hypertension: Yes - PULMONARY Hx Respiratory Disorders: Yes Hx Asthma: Yes - NEUROLOGICAL Hx Neurological Disorder: No - HEENT Hx HEENT Problems: Yes Other/Comment: Left eustachian tube dysfunction - RENAL Hx Chronic Kidney Disease: No Other/Comment: pt states was born with 1 kidney - ENDOCRINE/METABOLIC Hx Endocrine Disorders: No - HEMATOLOGICAL/ONCOLOGICAL Hx Blood Disorders: No - INTEGUMENTARY Hx Dermatological Problems: No - MUSCULOSKELETAL/RHEUMATOLOGICAL Hx Falls: No - GASTROINTESTINAL Hx Gastrointestinal Disorders: No - GENITOURINARY/GYNECOLOGICAL Hx Genitourinary Disorders: No - PSYCHIATRIC Hx Psychophysiologic Disorder: No Hx Depression: No Hx Emotional Abuse: No Hx Physical Abuse: No - SURGICAL HISTORY Hx Surgeries: Yes (JAW SX- CYST REMOVED,TONSILLECTOMY) Other/Comment: 3 teeth extracted under anesthesia on 08/04/2018 - ANESTHESIA Hx Anesthesia: Yes Hx Anesthesia Reactions: No Meds Allergies/Adverse Reactions: Allergies Allergy/AdvReac Type Severity Reaction Status Date / Time No Known Allergies Allergy Verified 05/19/18 13:26 - Medications Medications: Current Medications Acetaminophen (Tylenol 325mg Tab) 325 mg PO Q6H PRN PRN Reason: Pain, Mild (1-3) Atenolol (Tenormin) 25 mg PO BID [facility] Last Admin: 08/09/18 17:59 Dose: 25 mg Clindamycin HCl (Cleocin) 300 mg PO Q8 [facility]; Protocol Last Admin: 08/10/18 05:57 Dose: 300 mg Sodium Chloride (Sodium Chloride 0.9%) 1,000 mls @ 100 mls/hr IV .Q10H [facility] Last Admin: 08/10/18 06:00 Dose: 100 mls/hr Lidocaine HCl (Xylocaine 2% (Uro-Jet)) 10 ea TOP ONCE ONE Stop: 08/10/18 09:45 Loratadine (Claritin) 10 mg PO DAILY [facility] Last Admin: 08/09/18 17:58 Dose: 10 mg Lorazepam (Ativan) 1 mg PO TID PRN; Protocol PRN Reason: Anxiety Last Admin: 08/09/18 12:54 Dose: 1 mg Meclizine HCl (Antivert) 25 mg PO Q8 [facility] Last Admin: 08/10/18 05:57 Dose: 25 mg Methimazole (Tapazole) 5 mg PO BID [facility] Montelukast Sodium (Singulair) 10 mg PO HS [facility] Last Admin: 08/09/18 21:50 Dose: 10 mg Mupirocin (Bactroban Ointment) 10 gm TOP BID [facility] Ondansetron HCl (Zofran Inj) 4 mg IVP Q6H PRN PRN Reason: Nausea/Vomiting Pantoprazole Sodium (Protonix Ec Tab) 40 mg PO 0600 [facility] Last Admin: 08/10/18 05:57 Dose: 40 mg Tramadol HCl (Ultram) 50 mg PO Q8 PRN PRN Reason: Pain, severe (8-10) Last Admin: 08/09/18 19:40 Dose: 50 mg Physical Exam - Constitutional Appears: Non-toxic - Head Exam Head Exam: ATRAUMATIC - Extremities Exam Additional comments: LLE focused VASC: normal exam, pulses palpable, cap refill <3 seconds, mild edema to lateral nail border at great toe DERM: ingrown nail appreciated at the lateral border of the hallux nail bed, no drainage or bleeding, no pus, no clinical signs of infection, skin appears elevated over the nail ORTHO: pain on palpation of lateral nail border of hallux NEURO: intact - Neurological Exam Neurological exam: Alert, Oriented x3 - Psychiatric Exam Psychiatric exam: Normal Affect Results - Vital Signs Recent Vital Signs: Last Vital Signs Temp 98.1 F 08/10/18 05:33 Pulse 76 08/10/18 05:33 Resp 20 08/10/18 05:33 BP 131/83 05/06/19 05:33 Pulse Ox 97 08/10/18 05:33 - Labs Result Diagrams: 08/10/18 07:00 08/10/18 07:00 Labs: Laboratory Results - last 24 hr 08/10/18 08/10/18 08/10/18 07:00 07:00 07:00 WBC 7.8 RBC 3.90 Hgb 11.3 L D Hct 35.2 L MCV 90.3 MCH 29.0 MCHC 32.1 RDW 13.4 Plt Count 242 MPV 9.2 Neut % (Auto) 57.7 Lymph % (Auto) 28.2 Toole % (Auto) 8.7 H Eos % (Auto) 4.9 Baso % (Auto) 0.5 Lymph # (Auto) 2.2 Toole # (Auto) 0.7 H Eos # (Auto) 0.4 Baso # (Auto) 0.04 Absolute Neuts (auto) 4.50 Sodium 141 Potassium 3.7 Chloride 107 Carbon Dioxide 27 Anion Gap 10 BUN 12 Creatinine 0.7 Est GFR ( Amer) > 60 Est GFR (Non-Af Amer) > 60 Random Glucose 88 Calcium 8.2 L Magnesium 1.7 Total Bilirubin 0.3 AST 24 ALT 29 Alkaline Phosphatase 47 Total Protein 6.5 Albumin 3.4 Globulin 3.1 Albumin/Globulin Ratio 1.1 Free T4 1.19 Thyroxine (T4) 9.3 TSH 3rd Generation 0.24 L Assessment & Plan - Assessment and Plan (Free Text) Assessment: 48F with left great toe ingrown nail Plan: Patient seen and evaluated with Dr. Garcia No clinical signs of infection to left hallux nail border or digit Bactroban topical cream and topical lidocaine ordered Will clip lateral nail tomorrow for treatment Patient advised on risks with pedicures Keep toe clean and dry, use bactroban cream to soften nail and border Thank you for the consult - Date & Time Date: 08/10/18 Time: 09:52
[2018-08-10] MEDS: methIMAzole 5 MG TAB PO SCH ×2 (10:52→18:01)
[2018-08-10] MEDS: Mupirocin 2% Ointment 15 GM TUBE TOP SCH ×2 (10:53→18:03)
--- NOTE | 2018-08-10 14:25 | US ---
Date of service: 08/10/2018 HISTORY: diffuse toxic goiter/hyperthyroidism TECHNIQUE: Sonographic evaluation of the thyroid gland. COMPARISON: None available FINDINGS: RIGHT LOBE: Measures 4.6 x 2.2 x 1.7 cm. Heterogeneous echotexture Nodules: Mid lobe hypoechoic solid nodule, 5 x 6 x 7 mm Mid lobe isoechoic solid nodule with a hypoechoic halo, 1.2 x 0.8 x 1.1 cm Mid lobe hypoechoic solid nodule, 7 x 8 x 11 mm Mid lobe hypoechoic solid nodule, 3 x 4 mm Lower pole hypoechoic solid nodule, 7 x 7 x 11 mm Lower pole hypoechoic solid nodule, 5 x 6 x 7 mm LEFT LOBE: Measures 4.2 x 1.5 x 1.6 cm. Heterogeneous echotexture Nodules: Upper pole hypoechoic solid nodule, 4 x 6 x 6 mm Mid lobe hypoechoic solid nodule, 3 x 4 x 5 mm Lower pole hypoechoic solid nodule, 6 x 9 x 10 mm ISTHMUS: Measures 0.8 cm. Heterogeneous echotexture Nodules: There is a hypoechoic solid nodule in the mid isthmus measuring 8 x 10 x 15 mm. OTHER FINDINGS: None . IMPRESSION: Multinodular thyroid. By size criteria alone, consideration may be given to biopsy of the 15 mm isthmic nodule. No suspicious morphologic features of any of these nodules.
--- NOTE | 2018-08-10 15:37 | CARD ---
APPROVED REPORT Date of service: 08/10/2018 EXAM: Two-dimensional and M-mode echocardiogram with Doppler and color Doppler. INDICATION LVFX 2D DIMENSIONS Left Atrium (2D)4.3 (1.6-4.0cm)IVSd0.9 (0.7-1.1cm) LVDd4.6 (3.9-5.9cm)PWd1.0 (0.7-1.1cm) LVDs3.0 (2.5-4.0cm)FS (%) 35.2 % LVEF (%)64.7 (>50%) M-Mode DIMENSIONS Aortic Root2.80 (2.2-3.7cm)Aortic Cusp Exc.1.60 (1.5-2.0cm) Aortic Valve AoV Peak Ghwzittx617.0cm/sAoV VTI35.9cmAO Peak GR.13mmHg LVOT Peak Wxfgpciy690.0cm/sLVOT VTI25.70cmAO Mean GR.8mmHg Mitral Valve MV E Gsqvwvhc426.0cm/sMV A Hqbvdulj11.8cm/sE/A ratio1.2 TDI Lateral E' Peak V11.50cm/sMedial E' Peak V8.77cm/sE/Lateral E'9.1 E/Medial E'12.0 Pulmonary Valve PV Peak Vsizgsft40.0cm/sPV Peak Grad.4mmHg Tricuspid Valve TR Peak Orjyjrfe882cm/sRAP XFQJURDF03ekRfMV Peak Gr.36mmHg TFDA30yqLq LEFT VENTRICLE The left ventricle is normal size. There is normal left ventricular wall thickness. The left ventricular function is normal.EF-65% There is normal LV segmental wall motion. Transmitral Doppler flow pattern is Grade II-pseudonormal filling dynamics. No left ventricle thrombus noted on this study. There is no ventricular septal defect visualized. There is no left ventricular aneurysm. There is no mass noted in the left ventricle. RIGHT VENTRICLE The right ventricle is normal size. There is normal right ventricular wall thickness. The right ventricular systolic function is normal. ATRIA The left atrium is mildly dilated. The right atrium size is normal. The interatrial septum is intact with no evidence for an atrial septal defect. AORTIC VALVE The aortic valve is thickened but opens well. There is trace aortic regurgitation. There is no aortic valvular stenosis. There is no aortic valvular vegetation. MITRAL VALVE The mitral valve is thickened but opens well. Mitral regurgitation is trace to mild. There is no mitral valve stenosis. There is no evidence of mitral valve prolapse. TRICUSPID VALVE The tricuspid valve leaflets are thickened , but open well. There is mild tricuspid regurgitation.RVSP-46 mmof Hg. There is no tricuspid valve stenosis. There is no tricuspid valve prolapse or vegetation. PULMONIC VALVE The pulmonic valve is borderline thickened. There is trace pulmonic valvular regurgitation. There is no pulmonic valvular stenosis. GREAT VESSELS The aortic root is normal in size. The ascending aorta is normal in size. The pulmonary artery is normal. The IVC is normal in size and collapses >50% with inspiration. PERICARDIAL EFFUSION There is no pleural effusion. There is no pericardial effusion. <Conclusion> The left ventricle is normal size. There is normal left ventricular wall thickness. The left ventricular function is normal.EF-65% There is trace aortic regurgitation. Mitral regurgitation is trace to mild. There is mild tricuspid regurgitation.RVSP-46 mmof Hg. There is no pulmonic valvular stenosis. The IVC is normal in size and collapses >50% with inspiration. There is no pericardial effusion.
--- NOTE | 2018-08-10 16:30 | MRI ---
Date of service: 08/10/2018 PROCEDURE: MRI BRAIN WITHOUT CONTRAST HISTORY: severe dizziness COMPARISON: None available. TECHNIQUE: Multiplanar, multisequence MR images of the brain were obtained without intravenous contrast enhancement. FINDINGS: HEMORRHAGE: None DWI: No evidence of an acute or early subacute infarction. BRAIN PARENCHYMA: No mass effect or edema. Minimal microvascular changes. No evidence of atrophy. VENTRICLES: Unremarkable. No hydrocephalus. CRANIUM: Unremarkable. ORBITS: Grossly unremarkable. PARANASAL SINUSES/MASTOIDS: Clear VASCULAR SYSTEM: Skull base flow voids intact. OTHER FINDINGS: None. IMPRESSION: Unremarkable non contrast enhanced MRI of the brain.
--- NOTE | 2018-08-10 16:44 | PN ---
DATE: 08/10/2018 SUBJECTIVE: The patient is a 48-year-old seen and examined, still feel very weak, dizzy, lightheaded, as if she just came off of [facility], has difficulty walking. States feel nauseous at time. PHYSICAL EXAMINATION: VITAL SIGNS: She is afebrile. Pulse of 99, respirations 20, and blood pressure 119/65. LUNGS: Bilateral fair airflow. No rhonchi or crackle. HEART: S1 and S2 audible. ABDOMEN: Soft and nontender. No rebound. No guarding. NEUROLOGIC: The patient is awake and alert, able to communicate. ASSESSMENT: 1. Severe vertigo leading to nausea. 2. History of eustachian tube dysfunction. 3. Palpitation. 4. Electrolyte imbalance. PLAN: We will discontinue telemetry. . I will order for MRI of the brain. I will continue current medications. Continue her on beta-roxanne. Getting Dr. Mukherjee's input. Once we have MRI results available and Dr. Mukherjee evaluate the patient. The patient will be discharged to intensive care tomorrow depending on the result of MRI and Dr. Mukherjee's input. Rosa M Sousa MD
--- NOTE | 2018-08-10 19:38 | PN ---
DATE: 08/10/2018 REASON FOR CONSULTATION: Cardiac evaluation of palpitation. The patient denies any chest pain and shortness of breath. Denies any palpitation. OBJECTIVE: GENERAL: Not in apparent distress. VITAL SIGNS: Temperature 98, heart rate 76 and blood pressure 118/65. HEENT: PERRLA intact. NECK: Supple. No carotid bruits. No thyromegaly. CHEST: Clear to auscultation. HEART: S1 and S2, regular. ABDOMEN: Soft. EXTREMITIES: Clubbing and cyanosis negative. LABORATORY DATA: WBC 7.8, hemoglobin 11, hematocrit 35.2 and platelet count 242. Chemistry shows sodium 144, potassium 3.7, chloride 107, carbon dioxide 27, anion gap of 10, BUN 10, creatinine 0.7. TSH 0.16, repeat 0.35 and 0.24. 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 She had a Holter monitor in the past. PMV shows intermittent escape beat. She had a tooth extraction, was on clindamycin and she has got throbbing pain in the chest. Currently on atenolol. RECOMMENDATION: We will discontinue atenolol, put 10 mg of propranolol three times a day and followup echo. We will follow with you. The patient had decreased TSH, we will give the T3 and T4 to see for any hyperthyroidism, if the symptoms of hyperthyroidism are present then we will start some Tapazole. We will follow with you. Thank you Dr. Sousa for providing us the opportunity in taking care of the patient, Deisy Steven. Radha Mark MD
--- NOTE | 2018-08-10 20:37 | CP.PCM.CON ---
History of Present Illness - History of Present Illness History of Present Illness: This is a 48 yo obese female , known to service, who presented to ER yesterday with increased dizziness and palpitations with associated nausea and vomiting. Patient with long standing history of left ETD with subsequent dizziness for y ears. She has been treated with multiple medical regiments with limited results . Patient states symptoms do improve with prednisone. She maintains a low sodium diet / routinely does head exercises for dizziness. Dizziness is described as being on a boat . Denies current otorrhea or otalgia. c/o "bubbling" in left ear .PMHx significant for asthma , being born with one kidney , and ETD. Past Patient History - Infectious Disease Hx of Infectious Diseases: None - Tetanus Immunizations Tetanus Immunization: Unknown - Past Medical History & Family History Past Medical History?: Yes - Past Social History Smoking Status: Never Smoked - CARDIAC Hx Cardiac Disorders: Yes Hx Hypertension: Yes - PULMONARY Hx Respiratory Disorders: Yes Hx Asthma: Yes - NEUROLOGICAL Hx Neurological Disorder: No - HEENT Hx HEENT Problems: Yes Other/Comment: Left eustachian tube dysfunction - RENAL Hx Chronic Kidney Disease: No Other/Comment: pt states was born with 1 kidney - ENDOCRINE/METABOLIC Hx Endocrine Disorders: No - HEMATOLOGICAL/ONCOLOGICAL Hx Blood Disorders: No - INTEGUMENTARY Hx Dermatological Problems: No - MUSCULOSKELETAL/RHEUMATOLOGICAL Hx Falls: No - GASTROINTESTINAL Hx Gastrointestinal Disorders: No - GENITOURINARY/GYNECOLOGICAL Hx Genitourinary Disorders: No - PSYCHIATRIC Hx Psychophysiologic Disorder: No Hx Depression: No Hx Emotional Abuse: No Hx Physical Abuse: No - SURGICAL HISTORY Hx Surgeries: Yes (JAW SX- CYST REMOVED,TONSILLECTOMY) Other/Comment: 3 teeth extracted under anesthesia on 08/04/2018 - ANESTHESIA Hx Anesthesia: Yes Hx Anesthesia Reactions: No Meds Allergies/Adverse Reactions: Allergies Allergy/AdvReac Type Severity Reaction Status Date / Time Iodinated Contrast- Oral and Allergy SWELLING Verified 08/10/18 12:22 IV Dye - Medications Medications: Current Medications Acetaminophen (Tylenol 325mg Tab) 325 mg PO Q6H PRN PRN Reason: Pain, Mild (1-3) Clindamycin HCl (Cleocin) 300 mg PO Q8 [facility]; Protocol Last Admin: 08/10/18 16:25 Dose: 300 mg Loratadine (Claritin) 10 mg PO DAILY [facility] Last Admin: 08/10/18 10:53 Dose: 10 mg Lorazepam (Ativan) 1 mg PO TID PRN; Protocol PRN Reason: Anxiety Last Admin: 08/10/18 10:52 Dose: 1 mg Meclizine HCl (Antivert) 25 mg PO Q8 [facility] Last Admin: 08/10/18 16:25 Dose: 25 mg Methimazole (Tapazole) 5 mg PO BID [facility] Last Admin: 08/10/18 18:01 Dose: 5 mg Montelukast Sodium (Singulair) 10 mg PO HS [facility] Last Admin: 08/09/18 21:50 Dose: 10 mg Mupirocin (Bactroban Ointment) 0 gm TOP BID [facility] Last Admin: 08/10/18 18:03 Dose: Not Given Ondansetron HCl (Zofran Inj) 4 mg IVP Q6H PRN PRN Reason: Nausea/Vomiting Pantoprazole Sodium (Protonix Ec Tab) 40 mg PO 0600 [facility] Last Admin: 08/10/18 05:57 Dose: 40 mg Propranolol HCl (Inderal) 10 mg PO TID [facility] Last Admin: 08/10/18 18:01 Dose: 10 mg Tramadol HCl (Ultram) 50 mg PO Q8 PRN PRN Reason: Pain, severe (8-10) Last Admin: 08/10/18 16:31 Dose: 50 mg Physical Exam - Constitutional Appears: Well, Non-toxic, No Acute Distress - Head Exam Head Exam: ATRAUMATIC, NORMAL INSPECTION, NORMOCEPHALIC - Eye Exam Eye Exam: EOMI, Normal appearance, PERRL Additional comments: no nystagmus noted - ENT Exam Additional comments: EARS: EAC clear , TM with sclerosis AU - no fluid / no erythema NOSE: airway patent , Mucosa erythematous / atrophic / DNS O/P : WNL - Neck Exam Neck exam: Positive for: Thyromegaly Additional comments: No significant adenopathy noted - Respiratory Exam Respiratory Exam: NORMAL BREATHING PATTERN - Neurological Exam Neurological exam: CN II-XII Intact, Normal Gait, Oriented x3 - Psychiatric Exam Psychiatric exam: Normal Affect, Normal Mood - Skin Skin Exam: Dry, Intact, Normal Color, Warm Results - Vital Signs Recent Vital Signs: Last Vital Signs Temp 98.7 F 08/10/18 12:00 Pulse 83 08/10/18 12:00 Resp 20 08/10/18 12:00 BP 128/83 08/10/18 12:00 Pulse Ox 97 08/10/18 05:33 - Labs Result Diagrams: 08/10/18 07:00 08/10/18 07:00 Labs: Laboratory Results - last 24 hr 08/10/18 08/10/18 08/10/18 07:00 07:00 07:00 WBC 7.8 RBC 3.90 Hgb 11.3 L D Hct 35.2 L MCV 90.3 MCH 29.0 MCHC 32.1 RDW 13.4 Plt Count 242 MPV 9.2 Neut % (Auto) 57.7 Lymph % (Auto) 28.2 [place] % (Auto) 8.7 H Eos % (Auto) 4.9 Baso % (Auto) 0.5 Lymph # (Auto) 2.2 [place] # (Auto) 0.7 H Eos # (Auto) 0.4 Baso # (Auto) 0.04 Absolute Neuts (auto) 4.50 Sodium 141 Potassium 3.7 Chloride 107 Carbon Dioxide 27 Anion Gap 10 BUN 12 Creatinine 0.7 Est GFR ( Amer) > 60 Est GFR (Non-Af Amer) > 60 Random Glucose 88 Calcium 8.2 L Magnesium 1.7 Total Bilirubin 0.3 AST 24 ALT 29 Alkaline Phosphatase 47 Total Protein 6.5 Albumin 3.4 Globulin 3.1 Albumin/Globulin Ratio 1.1 Free T4 1.19 Thyroxine (T4) 9.3 TSH 3rd Generation 0.24 L Cortisol AM Sample 08/10/18 07:00 WBC RBC Hgb Hct MCV MCH MCHC RDW Plt Count MPV Neut % (Auto) Lymph % (Auto) [place] % (Auto) Eos % (Auto) Baso % (Auto) Lymph # (Auto) [place] # (Auto) Eos # (Auto) Baso # (Auto) Absolute Neuts (auto) Sodium Potassium Chloride Carbon Dioxide Anion Gap BUN Creatinine Est GFR ( Amer) Est GFR (Non-Af Amer) Random Glucose Calcium Magnesium Total Bilirubin AST ALT Alkaline Phosphatase Total Protein Albumin Globulin Albumin/Globulin Ratio Free T4 Thyroxine (T4) TSH 3rd Generation Cortisol AM Sample 6.6 - Imaging and Cardiology US Thyroid Status: Image reviewed by me, Report reviewed by me MRI - head Status: Image reviewed by me, Report reviewed by me Assessment & Plan (1) Eustachian tube disorder Status: Acute (2) Low TSH level Status: Acute (3) Near syncope Status: Acute (4) Palpitations Status: Acute (5) Vertigo Status: Acute Comment: Patient with long standing history of dizziness / ETD - Recommend Prednisone 5mg PO daily to BID pending response. Consider Dyazide daily . Continue with [place] exercises / Low sodium diet. (6) Nontoxic multinodular goiter Status: Acute Comment: Recommend US guided FNA of dominant nodule as outpatient
--- NOTE | 2018-08-10 20:53 | PN ---
DATE: 08/10/2018 LOCATION: Room 269. SUBJECTIVE: This is a 48-year-old female with persistent dizziness and palpitations over the last few months and worse over the past week or so prior to admission and is now being followed closely for metabolic management. She remains clinically euthyroid but biochemically has evidence of . TSH done twice on admission and repeat levels today showed a T4 or thyroxine level of 9.3 mcg/dL with a TSH of 0.24 and a free T4 of 1.19. Her serum cortisol level is 6.6 mcg/dL. Her chemistries show a BUN of 12, sodium 141, potassium 3.7, chloride 107, CO2 of 27, glucose 88 and creatinine 0.7. Her thyroid ultrasound done today showed the presence of a right lobe measuring 4.6 x 2.2 cm with very small nodules present and the left lobe measures 4.2 x 1.5 cm also with very small nodules present. ASSESSMENT: This is a 48-year-old female with subclinical hyperthyroidism most likely related to underlying Graves disease with clearly evident thyroid autoimmunity and possibly Graves disease. She has multinodular goiter confirmed radiologically with multiple small nodules as expected. PLAN OF MANAGEMENT: As discussed with the patient and staff, we will modify the thyroid regimen and start her on a low dose of medical therapy with Tapazole given as 5 mg b.i.d. after meals was ordered. We will obtain serial chemistries and supplement accordingly as needed. We will also await the report of the thyroid-stimulating immunoglobulin and the thyroid peroxidase antibody which will confirm and indicate the presence of underlying thyroid autoimmunity. We will obtain serial chemistries accordingly. Kerry Poe MD
[2018-08-11] MEDS: Pantoprazole 40 mg EC Tab PO SCH (05:48)
[2018-08-11 07:45] VITALS: BP 119/81; PULSE 18; RESP 94; TEMP 97.6
--- NOTE | 2018-08-11 08:34 | CP.PCM.PN ---
Subjective - Date & Time of Evaluation Date of Evaluation: 08/11/18 Time of Evaluation: 06:20 - Subjective Subjective: Awake,alert, no distress Reason for consultation: Cardiac evaluation of palpitations, history of History of hypertension, intermittent palpitations, asthma, born with one kidney,lympadenopathy, bacterial pharyngitis. Seen and examined by me and Objective - Vital Signs/Intake and Output Vital Signs (last 24 hours): Temp Pulse Resp BP Pulse Ox 97.6 F 18 L 94 H 119/81 97 08/11/18 06:00 08/11/18 06:00 08/11/18 06:00 08/11/18 06:00 08/10/18 22:37 Intake and Output: 08/11/18 08/11/18 06:59 18:59 Intake Total 980 Balance 980 - Medications Medications: Current Medications Acetaminophen (Tylenol 325mg Tab) 325 mg PO Q6H PRN PRN Reason: Pain, Mild (1-3) Last Admin: 08/11/18 03:25 Dose: 325 mg Clindamycin HCl (Cleocin) 300 mg PO Q8 [facility]; Protocol Last Admin: 08/11/18 05:48 Dose: 300 mg Loratadine (Claritin) 10 mg PO DAILY [facility] Last Admin: 08/10/18 10:53 Dose: 10 mg Lorazepam (Ativan) 1 mg PO TID PRN; Protocol PRN Reason: Anxiety Last Admin: 08/10/18 10:52 Dose: 1 mg Meclizine HCl (Antivert) 25 mg PO Q8 [facility] Last Admin: 08/10/18 21:29 Dose: 25 mg Methimazole (Tapazole) 5 mg PO BID [facility] Last Admin: 08/10/18 18:01 Dose: 5 mg Montelukast Sodium (Singulair) 10 mg PO HS [facility] Last Admin: 08/10/18 21:29 Dose: 10 mg Mupirocin (Bactroban Ointment) 0 gm TOP BID [facility] Last Admin: 08/10/18 18:03 Dose: Not Given Ondansetron HCl (Zofran Inj) 4 mg IVP Q6H PRN PRN Reason: Nausea/Vomiting Pantoprazole Sodium (Protonix Ec Tab) 40 mg PO 0600 [facility] Last Admin: 08/11/18 05:48 Dose: 40 mg Prednisone (Prednisone Tab) 5 mg PO DAILY [facility] Propranolol HCl (Inderal) 10 mg PO TID [facility] Last Admin: 08/10/18 18:01 Dose: 10 mg Tramadol HCl (Ultram) 50 mg PO Q8 PRN PRN Reason: Pain, severe (8-10) Last Admin: 08/10/18 16:31 Dose: 50 mg - Labs Labs: 08/10/18 07:00 08/10/18 07:00 PT 15.0 SECONDS (9.4-12.5) H 08/08/18 19:00 INR 1.35 08/08/18 19:00 APTT 34.3 Seconds (26.9-38.3) 08/08/18 19:00 - Constitutional Appears: Non-toxic, No Acute Distress - Head Exam Head Exam: NORMAL INSPECTION, NORMOCEPHALIC - Eye Exam Eye Exam: Normal appearance Pupil Exam: NORMAL ACCOMODATION - ENT Exam ENT Exam: Mucous Membranes Moist, Normal Exam - Respiratory Exam Respiratory Exam: Clear to Ausculation Bilateral, NORMAL BREATHING PATTERN - Cardiovascular Exam Cardiovascular Exam: +S1, +S2 - GI/Abdominal Exam GI & Abdominal Exam: Soft, Normal Bowel Sounds - Extremities Exam Extremities Exam: Full ROM, Normal Capillary Refill - Neurological Exam Neurological Exam: Alert, Awake, Oriented x3 - Psychiatric Exam Psychiatric exam: Normal Affect, Normal Mood - Skin Skin Exam: Dry, Normal Color Assessment and Plan - Assessment and Plan (Free Text) Assessment: A 48 year old obese female who came in to the ER due to dizziness and palpitations associated with nausea and vomiting x 1 day. History of hypertension, intermittent palpitations, asthma, born with one kidney, lympadenopathy, bacterial pharyngitis, Eustachian tube dysfunction in left ear causing dizziness and regularly follows up with ENT (Dr. Mukherjee). She was tested positive for EBV. She had holter monitor (Dr. Jara) for palpitations in April and showed intermittent skipped beats. Had teeth extraction few days a go. Patient takes antivert for dizziness. She has not seen neurologist for dizziness. Consult was called for palpitations. EKG showed sinus tachycardia- 110/min. TSH level low. Echo done and showed LVEF 65%, trace aortic regurgitation, trace to mild MR, mild TR, RVSP 46 mmHg. Thyroid scan showed mu ltinodular thyroid. Endocrine on consult. Started on Tapazole. Atenolol changed to Inderal. Heart rate controlled. Feels better. Plan: Feels better Denies chest pain Heart rate controlled Atenolol changed to Propanolol Blood pressure controlled On Tapazole 5 mg BID, Antivert 25 mg every 8 hours, Prednisone 5 mg daily, Inderal 10 mg TID Continue current medications Continue current treatment Started on Tapazole Endocrine on consult EENT on consult Will follow up Plan and treatment discussed with Dr. Mark
[2018-08-11] MEDS ORDERED: Potassium Chloride 20 mEq ER Tab PO ONE (09:46)
[2018-08-11] MEDS: methIMAzole 5 MG TAB PO SCH (10:08)
--- NOTE | 2018-08-11 10:39 | CP.PCM.PN ---
Subjective - Date & Time of Evaluation Date of Evaluation: 08/11/18 Time of Evaluation: 10:35 - Subjective Subjective: Podiatry progress note - Drs. Schwartz/Jose 48F seen and evaluated this AM with Dr. Garcia for left great toe pain secondary to ingrown toenail. Reports decreased pain to the digit. Denies acute events overnight. Denies n/v/f/c/sob and has no other acute complaints at this time. Objective - Vital Signs/Intake and Output Vital Signs (last 24 hours): Temp Pulse Resp BP Pulse Ox 97.6 F 18 L 94 H 119/81 97 08/11/18 06:00 08/11/18 06:00 08/11/18 06:00 08/11/18 06:00 08/10/18 22:37 Intake and Output: 08/11/18 08/11/18 06:59 18:59 Intake Total 980 240 Balance 980 240 - Medications Medications: Current Medications Acetaminophen (Tylenol 325mg Tab) 325 mg PO Q6H PRN PRN Reason: Pain, Mild (1-3) Last Admin: 08/11/18 03:25 Dose: 325 mg Clindamycin HCl (Cleocin) 300 mg PO Q8 [facility]; Protocol Last Admin: 08/11/18 05:48 Dose: 300 mg Loratadine (Claritin) 10 mg PO DAILY [facility] Last Admin: 08/11/18 10:08 Dose: 10 mg Lorazepam (Ativan) 1 mg PO TID [facility]; Protocol PRN Reason: Anxiety Last Admin: 08/10/18 10:52 Dose: 1 mg Meclizine HCl (Antivert) 25 mg PO Q8 [facility] Last Admin: 08/11/18 10:25 Dose: 25 mg Methimazole (Tapazole) 5 mg PO BID [facility] Last Admin: 08/11/18 10:08 Dose: 5 mg Montelukast Sodium (Singulair) 10 mg PO HS [facility] Last Admin: 08/10/18 21:29 Dose: 10 mg Mupirocin (Bactroban Ointment) 0 gm TOP BID [facility] Last Admin: 08/10/18 18:03 Dose: Not Given Ondansetron HCl (Zofran Inj) 4 mg IVP Q6H PRN PRN Reason: Nausea/Vomiting Pantoprazole Sodium (Protonix Ec Tab) 40 mg PO 0600 [facility] Last Admin: 08/11/18 05:48 Dose: 40 mg Prednisone (Prednisone Tab) 5 mg PO DAILY [facility] Last Admin: 08/11/18 10:08 Dose: 5 mg Propranolol HCl (Inderal) 10 mg PO TID [facility] Last Admin: 08/11/18 10:08 Dose: 10 mg Tramadol HCl (Ultram) 50 mg PO Q8 PRN PRN Reason: Pain, severe (8-10) Last Admin: 08/10/18 16:31 Dose: 50 mg - Labs Labs: 08/10/18 07:00 08/10/18 07:00 PT 15.0 SECONDS (9.4-12.5) H 08/08/18 19:00 INR 1.35 08/08/18 19:00 APTT 34.3 Seconds (26.9-38.3) 08/08/18 19:00 - Constitutional Appears: Non-toxic - Head Exam Head Exam: ATRAUMATIC - Extremities Exam Additional comments: LLE focused VASC: normal exam, pulses palpable, cap refill <3 seconds, mild edema to lateral nail border at great toe DERM: ingrown nail appreciated at the lateral border of the hallux nail bed, no drainage or bleeding, no pus, no clinical signs of infection, skin appears elevated over the nail ORTHO: pain on palpation of lateral nail border of hallux NEURO: intact - Neurological Exam Neurological Exam: Alert, Awake, Oriented x3 - Psychiatric Exam Psychiatric exam: Normal Affect Assessment and Plan - Assessment and Plan (Free Text) Assessment: 48F with left great toe ingrown nail Plan: Patient seen and evaluated with Dr. Garcia No clinical signs of infection to left hallux nail border or digit Bactroban topical cream applied to soften nail Topical lidocaine applied to lateral aspect of nailbed for anesthesia prior to cutting of nail Ingrown nail successfully cut out with nail nipper without incident, patient tolerated well Epsom salt bath ordered for tonight Continue to cover with gauze for next two days If any pus or drainage or increased pain please reconsult Podiatry to sign off, thank you
--- NOTE | 2018-08-11 17:23 | PN ---
DATE: 08/11/2018 ENDO FOLLOWUP NOTE LOCATION: Room 561. SUBJECTIVE: This is a 48-year-old female with recent evaluation of her early hyperthyroidism presenting here with worsening palpitations and episodic dizziness and lightheadedness, and is now being followed closely for metabolic management. She remains clinically euthyroid at this time. LABORATORY DATA: Biochemically, her repeat TSH is 0.24 with a total T4 or thyroxine level of 9.3 and a free T4 of 1.19. Her chemistry showed a BUN of 12, sodium 141, potassium 3.7, chloride 107, CO2 of 27, glucose 88, and creatinine was 0.7. Her cortisol level is 6.6 mcg/dL. Thyroid ultrasound showed the presence of a multinodular gland or goiter with multiple small nodules bilaterally. The right lobe measured 4.6 x 2.2 x 1.7 cm with multiple small solid nodules as noted. Her left thyroid lobe measured 4.2 x 1.5 cm and once again with small nodules. ASSESSMENT: This is a 48-year-old female with subclinical hyperthyroidism most likely related to underlying thyroid autoimmunity coming from diffuse toxic multinodular goiter as noted. PLAN OF MANAGEMENT: As discussed with the patient lengthily at bedside, we will continue the low-dose Tapazole given as 5 mg b.i.d. after meals to start today as ordered. We will obtain serial chemistries and supplement accordingly as needed. We will also obtain serial thyroid studies and titrated dose regimen accordingly. The implications of long-term thyroid hormone medications emphasize. We will await the results of the thyroid peroxidase and thyroglobulin antibody, and this will confirm the presence and absence of thyroid autoimmunity. Kerry Poe MD
--- NOTE | 2018-08-12 03:19 | DS ---
HISTORY OF PRESENT ILLNESS: The patient is 48 years old, seen and examined. The patient came in with extreme dizziness. The patient states that she had a wisdom tooth extracted almost a week ago. Since then, she has been feeling extremely dizzy. The procedure was done under anesthesia. Complained of low-grade fever and complained of feeling extremely dizzy, nauseous, unable to hold food. She was admitted, was given IV fluid, was given Antivert. She also had palpitation. Workup showed that she might have subclinical hyperthyroidism. Dr. Kerry Poe was involved. The patient was started on Tapazole. She is also on propranolol 10 mg three times a day. She states this present regimen of prednisone and methimazole has helped her. Her dizziness is better. PHYSICAL EXAMINATION: GENERAL: She is awake and alert, able to communicate. VITAL SIGNS: She is afebrile, pulse 85, respiration 18, and blood pressure 117/77. LUNGS: Bilateral fair airflow. No rhonchi or crackle. HEART: S1 and S2 audible. ABDOMEN: Soft and nontender. No rebound. No guarding. NEUROLOGIC: The patient is awake and alert, able to communicate. LABORATORY DATA: The a.m. cortisol is 6.6. Urine has large blood and trace rbcs. Urine tox positive for benzodiazepine since she is on benzodiazepine for her severe vertigo. ASSESSMENT: 1. Severe vertigo with intractable nausea and vomiting. 2. Dizziness. 3. Palpitation, rule out hyperthyroidism. PLAN: The patient was seen and examined by Dr. Kerry Poe, decided to put her on tapazol 5 mg twice a day. We will give her that She was given prednisone 5 mg daily. She is given propranolol 10 mg three times a day. She is on methimazole 5 mg twice a day. She also had MRI of the brain that is negative. Thyroid sonogram has multiple nodules. Recommendation for biopsy. So plan is; the patient is being discharged home. She is being given Ativan 0.5 mg t.i.d. p.r.n. She is on propranolol 10 mg three times a day. She has to discontinue atenolol. We will discontinue Klonopin and start her on Ativan 0.5 mg t.i.d. p.r.n. for dizziness, and she will be started on prednisone 5 mg daily. She is advised to follow up with PMD. Rosa M Sousa MD MTDVenkatesh
== END 2018-08-11 19:16 | disposition home or self-care (01) | DRG 155 ==
LOC: ED 18:07 → ERH 23:02 → 2RNO 08-09 01:39 → 5RNO 08-10 16:01
PROVIDERS: ADMIT Internal Medicine; ATTEND Internal Medicine
DX: H69.80 Other specified disorders of Eustachian tube, unspecified ear (principal); Q60.0 Renal agenesis, unilateral; E05.20 Thyrotoxicosis with toxic multinodular goiter without thyrotoxic crisis or storm; R42 Dizziness and giddiness; R00.2 Palpitations; J45.909 Unspecified asthma, uncomplicated; R11.2 Nausea with vomiting, unspecified; Z79.899 Other long term (current) drug therapy; L60.0 Ingrowing nail; R00.0 Tachycardia, unspecified; E66.9 Obesity, unspecified; E78.5 Hyperlipidemia, unspecified; I10 Essential (primary) hypertension; W19.XXXA Unspecified fall, initial encounter; Y93.01 Activity, walking, marching and hiking; Z68.29 Body mass index [BMI] 29.0-29.9, adult